=== PATIENT | female | born 1980 | race Caucasian/White ===

== ENCOUNTER → 2018-05-12 11:53 | Outpatient (CLI) | payer BC, SELFPAY ==
--- NOTE | 2018-05-12 11:58 | XR_ITS ---
EXAM: XR lumbar spine min 4V HISTORY: ITS.REASON: LOW BACK PAIN ORDERING PHYSICIAN: Pauline Phillips PATIENT AGE: 37 years COMPARISON: None FINDINGS: Normal alignment. No fracture or dislocation. No lytic or blastic change. No significant degenerative change. The disc spaces are preserved. There is minimal thoracolumbar curvature convex right. Is mild anterolisthesis of L4 on L5 of approximately 5 mm. There may be pars defects at L5. This is somewhat difficult to evaluate due to the obliquity. A nonobstructing stone is present along the lower pole follow-up the right kidney at 3 mm and also at the lower pole the left kidney at 3 mm.. No other significant anomalies are evident IMPRESSION: 1. Mild spondylolisthesis L5 on S1 which may be spondylitic in nature with mild lumbar scoliosis convex right. 2. Otherwise negative lumbar spine. 3. Bilateral nephrolithiasis
--- NOTE | 2018-05-12 11:58 | XR_ITS ---
EXAM: XR thoracic spine 3V HISTORY: ITS.REASON: THORACIC BACK PAIN Comparison: None FINDINGS: Normal alignment. No fracture or dislocation. No lytic or blastic change. There are mild degenerative changes in the upper thoracic spine with mild degenerative disc disease. No malalignment. IMPRESSION: Mild upper thoracic spondylosis, no acute finding
== END ==
PROVIDERS: PCP Nurse Practitioner Family; Visit Provider Nurse Practitioner Family
DX: M54.6 Pain in thoracic spine (principal); M54.5 Low back pain
CPT/HCPCS: 72072; 72110

== ENCOUNTER → 2018-08-18 09:09 | Outpatient (POV) | payer BC, SELFPAY ==
[2018-08-18 09:20] VITALS: BP 138/98; PULSE 71; RESP 18; O2SAT 98
--- NOTE | 2018-08-18 09:50 | HMH.PMCON ---
Assessment and Plan (1) Lumbar facet joint pain Current visit: Yes Status: Acute Category: Medical Code(s): M54.5 - Low back pain (2) Arthropathy of lumbosacral facet joint Current visit: Yes Status: Acute Category: Medical Code(s): M47.817 - Spondylosis without myelopathy or radiculopathy, lumbosacral region (3) Spondylosis Current visit: Yes Status: Acute Category: Medical Code(s): M47.9 - Spondylosis, unspecified - Assessment and plan all Dx Assessment and Plan for all problems:: Given the patient's complaints, I think she would benefit from facet joint injections at L4-L5 and L5-S1 bilaterally. Patient's not on any anticoagulation therapy. The patient understands that this is a diagnostic procedure. We also discussed a radiofrequency ablation if facet joint injections are helpful. The patient has been scheduled and we will follow-up with her after the procedure. Is been instructed to call the office if she has any concerns prior to her next visit. Dr. Tian has reviewed this note and agrees with this plan of care. This note was dictated using voice recognition software and may contain errors or omissions HPI - Data of Consult Consult date: 08/18/18 Requesting Physician: Mague Mahajan APRN Primary Care Provider: Pauline Phillips APRN - Consult Narrative Reason for consult: Low back pain History of present illness: Ms. Giron is a 38 year old female who presents today for complaints of low back pain. She has been seeing Dr. Rivera in [place] has received 2 epidural injections. She is scheduled for a third epidural injection, and then the plan per Dr. Rivera is to do a lumbar fusion. She reports constant pain and pressure when standing, twisting at the waist, lying flat, and sitting. She does have pressure relieved when leaning forward. She has been using the anti-inflammatories and has been exercising. She says neither have relieved the pain. The patient is concerned about having a fusion and would like to consider other options before having surgery. She rates her pain a 6 out of 10 today. The patient has been taking tramadol 50 mg twice daily. This was prescribed by her PCP. She does say that it takes the edge off of the pain but does not relieve it entirely . Patient is interested in moving forward with additional injective therapy. Patient has no radiation of her pain. CC: Mague Mahajan APRN [facility] History I have reviewed the patient's past medical history: Yes Medical History: Reports:: Heart Murmur, Hyperlipidemia, Palpitations Denies:: Cancer, Diabetes Mellitus Type 1, Diabetes Mellitus Type 2, MRSA *Have you ever received a pneumonia vaccine?: No *Have you received a flu vaccine this season?: No Amputation: No - *Social History Smoking Status: Never smoker Alcohol Intake: never *Occupational Status:: other Housing: house *Travel in the last 8 weeks: None - Psychiatric History Expresses thoughts of harming self/others: None Suicide Plan Description: No Plan Family Hx:: Unable to obtain Review of Systems - Review of Systems ROS General: no recent weight change, no fever, no sleep disturbances Respiratory: no cough, no shortness of air, no recurring pulmonary infections Cardiovascular/Peripheral Vascular: No chest pain, No palpitations, no edema, no shortness of breath. Gastrointestinal: no incontinence, normal bowel movements reported Genitourinary: no incontinence Musculoskeletal: Low back pain Psychiatric: normal mood/ affect, [denies depression], [denies anxiety] Neurological: [denies weakness in extremities], [denies balance issues] Meds Home Medications Medication Instructions Recorded Confirmed Type Hydrocodone/Acetaminophen 1 each PO DIRECTED PRN 06/12/17 06/12/17 History [Hydrocodone-Acetamin 10-325 mg] Sertraline HCl [Zoloft 50mg tablet] 50 mg PO DAILY 06/12/17 06/12/17 History predniSONE [Prednisone 10mg Tab 10 mg PO D
--- NOTE | 2018-08-18 09:56 | P.CONS_ITS ---
Assessment and Plan (1) Lumbar facet joint pain Current visit: Yes Status: Acute Category: Medical Code(s): M54.5 - Low back pain (2) Arthropathy of lumbosacral facet joint Current visit: Yes Status: Acute Category: Medical Code(s): M47.817 - Spondylosis without myelopathy or radiculopathy, lumbosacral region (3) Spondylosis Current visit: Yes Status: Acute Category: Medical Code(s): M47.9 - Spondylosis, unspecified - Assessment and plan all Dx Assessment and Plan for all problems:: Given the patient's complaints, I think she would benefit from facet joint injections at L4-L5 and L5-S1 bilaterally. Patient's not on any anticoagulation therapy. The patient understands that this is a diagnostic procedure. We also discussed a radiofrequency ablation if facet joint injections are helpful. The patient has been scheduled and we will follow-up with her after the procedure. Is been instructed to call the office if she has any concerns prior to her next visit. Dr. Tian has reviewed this note and agrees with this plan of care. This note was dictated using voice recognition software and may contain errors or omissions HPI - Data of Consult Consult date: 08/18/18 Requesting Physician: Mague Mahajan APRN Primary Care Provider: Pauline Phillips APRN - Consult Narrative Reason for consult: Low back pain History of present illness: Ms. Giron is a 38 year old female who presents today for complaints of low back pain. She has been seeing Dr. Rivera in [place] has received 2 epidural injections. She is scheduled for a third epidural injection, and then the plan per Dr. Rivera is to do a lumbar fusion. She reports constant pain and pressure when standing, twisting at the waist, lying flat, and sitting. She does have pressure relieved when leaning forward. She has been using the anti- inflammatories and has been exercising. She says neither have relieved the pain. The patient is concerned about having a fusion and would like to consider other options before having surgery. She rates her pain a 6 out of 10 today. The patient has been taking tramadol 50 mg twice daily. This was prescribed by her PCP. She does say that it takes the edge off of the pain but does not relieve it entirely . Patient is interested in moving forward with additional injective therapy. Patient has no radiation of her pain. CC: Mague Mahajan APRN [facility] History I have reviewed the patient's past medical history: Yes Medical History: Reports:: Heart Murmur, Hyperlipidemia, Palpitations Denies:: Cancer, Diabetes Mellitus Type 1, Diabetes Mellitus Type 2, MRSA *Have you ever received a pneumonia vaccine?: No *Have you received a flu vaccine this season?: No Amputation: No - *Social History Smoking Status: Never smoker Alcohol Intake: never *Occupational Status:: other Housing: house *Travel in the last 8 weeks: None - Psychiatric History Expresses thoughts of harming self/others: None Suicide Plan Description: No Plan Family Hx:: Unable to obtain Review of Systems - Review of Systems ROS General: no recent weight change, no fever, no sleep disturbances Respiratory: no cough, no shortness of air, no recurring pulmonary infections Cardiovascular/Peripheral Vascular: No chest pain, No palpitations, no edema, no shortness of breath. Gastrointestinal: no incontinence, normal bowel movements reported Genitourinary: no incontinence Musculoskeletal: Low back pain Psychiatric: normal mood/ affect, [denies depression], [denies anxiety] Neurological:
== END ==
PROVIDERS: PCP Nurse Practitioner Family; Visit Provider Clinical Nurse Specialist Family Health
DX: M47.817 Spondylosis without myelopathy or radiculopathy, lumbosacral region (principal)
CPT/HCPCS: 99202

== ENCOUNTER 2018-08-28 12:12 | Day surgery (SDC) | payer BC, SELFPAY ==
[2018-08-28 12:28] VITALS: BP 116/88; PULSE 84; RESP 18; O2SAT 97; BMI 23.1
--- NOTE | 2018-08-28 12:38 | HMH.PMPROC ---
- Procedure Date: 08/28/18 Time: 12:38 Anesthesiologist:: Jw Tian MD Complications:: None Pre-procedure Diagnosis:: Degenerative disc disease of lumbar spine with lumbar radicular symptoms and lumbar spondylosis and facet arthropathy of lumbar spine Post-procedure Diagnosis:: Same Indications for Procedure:: This patient is a pleasant 38-year-old white female who we have been treating for low back pain with lumbar radicular symptoms. She is previously had epidural steroid injections by Dr. Rivera. She was scheduled for a fusion however she wants to try conservative treatments prior to undergoing a fusion. She does have facet arthritis. We will do bilateral lumbar facet injection/medial branch blocks of L4-5 and L5-S1 today. Procedure Details:: Lumbar medial branch block Informed consent was obtained and the risks and benefits of the procedure was explained to the patient. The back was prepped using ChloraPrep. The skin and subcutaneous tissues were anesthetized using lidocaine. I placed 22-gauge spinal needles into the facet joint/medial branches of L4-L5 and L5-S1 bilaterally. Needle placement was confirmed with dye. After this we injected 3 mL bupivacaine 0.25% and Depo-Medrol 20 mg into each facet joint/medial branch of L4-L5 and L5-S1 bilaterally. We used a total of 80 mg Depo-Medrol for both levels bilaterally. The patient tolerated the procedure well with no complications. Plan and Disposition:: We will follow-up with her in 2 weeks. Will reevaluate symptoms at that time. If she does well we will plan on radiofrequency ablation of the facet joints in the future.
[2018-08-28 12:41] VITALS: BP 148/84; PULSE 99; RESP 18
[2018-08-28 12:42] VITALS: BP 142/78; PULSE 98; RESP 18; O2SAT 99
[2018-08-28 12:51] VITALS: BP 158/88; PULSE 72; RESP 16; O2SAT 96
== END 2018-08-28 12:50 | disposition home or self-care (01) ==
LOC: SC.PAINP 12:13
PROVIDERS: PCP Nurse Practitioner Family; Visit Provider Anesthesiology
DX: M51.16 Intervertebral disc disorders with radiculopathy, lumbar region (principal); M47.896 Other spondylosis, lumbar region; M54.06 Panniculitis affecting regions of neck and back, lumbar region
CPT/HCPCS: 64493; 64494; J1030; Q9966

== ENCOUNTER → 2018-09-21 13:45 | Outpatient (POV) | payer BC, SELFPAY ==
[2018-09-21 13:53] VITALS: BP 147/81; PULSE 100; RESP 18; O2SAT 98; BMI 22.7
--- NOTE | 2018-09-21 14:26 | HMH.PAINSOAP ---
[facility] Pain Management SOAP Note Subjective:: Patient is a pleasant 38-year-old white female who presents today for follow-up after facet injections/medial branch block of L4-L5 and L5-S1 bilaterally. Patient says that she had 80% relief with this. She is being treated for low back pain with lumbar radiculopathy symptoms. Patient has had previous epidural steroid injections by Dr. Rivera that she says were ineffective for her pain. She does rate her pain a 3 out of 10 today. Patient would like to proceed with an RFA. She has continued with a home stretching program, along with anti-inflammatories. She says that her pain is worse when she bends her hips. Review of Systems General: No recent weight changes, no fever, no sleep disturbances Respiratory: No cough, no shortness of air, no recurring pulmonary infections Cardiovascular/peripheral vascular: No chest pain, no palpitations, no edema, no shortness of breath Gastrointestinal: No new onset incontinence, normal bowel movements reported Genitourinary: No new onset incontinence Musculoskeletal: Back pain Psychiatric: Normal mood/affect Neurological: [Denies weakness in extremities], [denies balance issues] Objective:: Physical exam General: Alert and oriented x3, no acute distress, pleasant and cooperative, [on room air] Lungs: Respirations even and unlabored, symmetrical chest expansion Eyes: PERRL Musculoskeletal: Flexion and extension of lumbar spine somewhat guarded secondary to pain, deep tendon reflexes normal, strength in upper and lower extremities [5/5], normal gait noted, positive Kemps test Neurological: Speech clear, house worker general equal, no gross sensory deficit Assessment:: Degenerative disc disease lumbar spine with lumbar radiculopathy, lumbar spondylosis, facet arthropathy of lumbar spine Plan:: The pain she understands that the facet injection is diagnostic. Due to her attempts of conservative treatment, she is requesting to proceed with an RFA as soon as possible. We will schedule the patient for an RFA of L4-L5 and L5-S1 bilaterally. Patient is not on any anticoagulation therapy. She is also continuing a home stretching program with anti-inflammatories. Patient understands that she may require a second facet injection prior to her RFA. We will schedule her for the procedure and follow-up with her afterwards to reassess her symptoms at that time. She is been instructed to call the office if she has any concerns prior to that next appointment. Dr. Tian has reviewed this note and agrees with this plan of care. This note was dictated using voice recognition software and make contain errors or omissions.
--- NOTE | 2018-09-21 14:31 | P.CONS_ITS ---
[facility] Pain Management SOAP Note Subjective:: Patient is a pleasant 38-year-old white female who presents today for follow-up after facet injections/medial branch block of L4-L5 and L5-S1 bilaterally. Patient says that she had 80% relief with this. She is being treated for low back pain with lumbar radiculopathy symptoms. Patient has had previous epidural steroid injections by Dr. Rivera that she says were ineffective for her pain. She does rate her pain a 3 out of 10 today. Patient would like to proceed with an RFA. She has continued with a home stretching program, along with anti- inflammatories. She says that her pain is worse when she bends her hips. Review of Systems General: No recent weight changes, no fever, no sleep disturbances Respiratory: No cough, no shortness of air, no recurring pulmonary infections Cardiovascular/peripheral vascular: No chest pain, no palpitations, no edema, no shortness of breath Gastrointestinal: No new onset incontinence, normal bowel movements reported Genitourinary: No new onset incontinence Musculoskeletal: Back pain Psychiatric: Normal mood/affect Neurological: [Denies weakness in extremities], [denies balance issues] Objective:: Physical exam General: Alert and oriented x3, no acute distress, pleasant and cooperative, [on room air] Lungs: Respirations even and unlabored, symmetrical chest expansion Eyes: PERRL Musculoskeletal: Flexion and extension of lumbar spine somewhat guarded secondary to pain, deep tendon reflexes normal, strength in upper and lower extremities [5/5], normal gait noted, positive Kemps test Neurological: Speech clear, 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 Due to her attempts of conservative treatment, she is requesting to proceed with an RFA as soon as possible. We will schedule the patient for an RFA of L4-L5 and L5-S1 bilaterally. Patient is not on any anticoagulation therapy. She is also continuing a home stretching program with anti-inflammatories. Patient understands that she may require a second facet injection prior to her RFA. We will schedule her for the procedure and follow-up with her afterwards to reassess her symptoms at that time. She is been instructed to call the office if she has any concerns prior to that next appointment. Dr. Tian has reviewed this note and agrees with this plan of care. This note was dictated using voice recognition software and make contain errors or omissions.
== END ==
PROVIDERS: PCP Nurse Practitioner Family; Visit Provider Clinical Nurse Specialist Family Health
DX: M51.16 Intervertebral disc disorders with radiculopathy, lumbar region (principal); M47.896 Other spondylosis, lumbar region; M54.06 Panniculitis affecting regions of neck and back, lumbar region
CPT/HCPCS: 99212

== ENCOUNTER → 2019-05-31 12:58 | Outpatient (CLI) | payer BC, SELFPAY | PROVIDERS: PCP Nurse Practitioner Family; Visit Provider Nurse Practitioner Family | DX: J45.41 Moderate persistent asthma with (acute) exacerbation (principal) | CPT/HCPCS: 94060; 94640 ==

== ENCOUNTER → 2019-06-28 14:17 | Outpatient (POV) | payer BC, SELFPAY ==
--- NOTE | 2019-06-28 16:11 | HMH.VVPMSO ---
[facility] Virtual Visit SOAP Consent for virtual visit:: With the recent concerns about the COVID-19, we are trying to minimize exposure to you by shifting to telehealth appointments whenever possible. It restricts me from seeing you in person, but the trade off is protecting you during this pandemic. Can you see and hear me okay, and do you consent to this option? If not, I would be happy to see if we can reschedule your appointment in the future, when feasible. Has patient consented to this virtual visit?: Yes Subjective:: She is a very pleasant 39-year-old white female who presents today for follow-up. Patient had an RFA done back in November of last year. Patient is done extremely well. She has had 8 months of pain relief. She gets 90% relief with her RFA's. She would like to move forward with repeating the RFA. Patient beginning to have her pain returned. She rates it a 4 out of 10 today. She is tried and failed medications, anti-inflammatories, physical therapy. Patient also had 2 sets of successful diagnostic medial branch blocks. ROS General: no recent weight change, no fever, no sleep disturbances Respiratory: no cough, no shortness of air, no recurring pulmonary infections Cardiovascular/Peripheral Vascular: No chest pain, No palpitations, no edema, no shortness of breath. Gastrointestinal: no new onset incontinence, normal bowel movements reported Genitourinary: no new onset incontinence Musculoskeletal: Back pain Psychiatric: normal mood/ affect, Neurological: [denies new onset weakness in extremities], [denies new onset balance issues] Objective:: Physical exam: Constitutional: Healthy appearing, well-developed, alert, in no acute distress Psychiatric: Judgment and insight intact, Alert and oriented x4 Mood and affect: Mood normal, affect appropriate Head and face: Inspection: Normocephalic atraumatic, extraocular movement intact Respiratory: Breathing nonlabored, nondyspneic Cardiovascular: No cyanosis, clubbing, or edema observed Skin: Head and neck: Skin with no lesions or rash observed Gait: Able to walk without assistive device: Able to heel and toe walk Neurologic: Sensation grossly intact per patient Musculoskeletal: Difficulty with twisting motion of lumbar spine, range of motion decreased lumbar spine Assessment:: Spondylosis, facet joint arthropathy. Plan:: We will set her up for an L4-L5 L5-S1 facet joint radiofrequency ablation bilaterally. She will have one side done and then 2 weeks later have the other side done. She is not on any anticoagulation therapy. Overall patient doing well. I will follow-up with her after this reassess her symptoms at that time she was instructed to call the office if she has any issues prior to her next appointment. Dr. iTan has reviewed this note and agrees with this plan of care. This note was dictated using voice recognition software and may contain errors or omissions we specifically discussed risk factors for Covid-19 including age, heart or lung disease, diabetes, immunosuppression and travel. We also discussed that NSAIDs may worsen Covid-19 infection symptoms and that they should not be used to treat Covid-19 symptoms. Patient was also informed that corticosteroids in any form oral or injectable will decrease immune response and may increase risk of Covid-[address] Tian has reviewed this patient's chart and this note and agrees with plan of care. Patient has been instructed to call the office if they have any issues prior to the next appointment. Time In:: 14:20 Time Out:: 14:30 [facility] History I have reviewed the patient's past medical history: Yes Medical History: Reports:: Asthma, Heart Murmur, Hyperlipidemia, Palpitations Denies:: Cancer, Diabetes Mellitus Type 1, Diabetes Mellitus Type 2, MRSA, Seizures *Have you ever received a pneumonia vaccine?: No *Have you received a flu vaccine this season?: No Other Medical History: Reports:
== END ==
PROVIDERS: Visit Provider Clinical Nurse Specialist Family Health
DX: M47.816 Spondylosis without myelopathy or radiculopathy, lumbar region (principal); M54.06 Panniculitis affecting regions of neck and back, lumbar region
CPT/HCPCS: 99212

== ENCOUNTER 2019-07-30 13:30 | Day surgery (SDC) | payer BC, SELFPAY ==
[2019-07-30 13:46] VITALS: BP 133/74; PULSE 90; RESP 18; TEMP 37.1; O2SAT 97; BMI 23.5
--- NOTE | 2019-07-30 14:05 | HMH.PMPROC ---
- Procedure Date: 07/30/19 Time: 14:05 Anesthesiologist:: Jw Tian MD Complications:: None Pre-procedure Diagnosis:: Degenerative disc disease of lumbar spine with lumbar spondylosis and facet arthropathy of lumbar spine Post-procedure Diagnosis:: Same Indications for Procedure:: This patient is a pleasant 39-year-old white female who we have been treating for low back pain with lumbar spondylosis and facet arthropathy of lumbar spine. She is done well with previous medial branch blocks with 80 to 90% relief in her pain symptoms. She does have facet mediated pain over L4-5 and L5-S1. We will plan on right sided lumbar facet radiofrequency ablation of L4-5 and L5-S1 today. We will plan on doing the left side in 2 weeks. Procedure Details:: Lumbar RFA informed consent was obtained and the risk and benefits of the procedure was explained to the patient. Patient was placed prone on the procedure table. The patient was prepped and draped in sterile fashion. C-arm fluoroscopy was used to view the lumbar spine. The skin and subcutaneous tissues were anesthetized using lidocaine. I placed 20-gauge RF needles into the facet joints of L4-5 and L5-S1 levels on the right side. We underwent sensory stimulation. There is good sensory stimulation at 0.8 V. We underwent motor stimulation. There is no motor stimulation at 2 V. We then anesthetized these levels with lidocaine and Depo-Medrol. I used a total of 40 mg Depo-Medrol for both levels. I then burned both levels of 4 5 and L5-S1 for 4 minutes at 80 ?C. Patient tolerated the procedure well with no complication. Plan and Disposition:: We will follow-up with her in 2 weeks. Will reevaluate her symptoms. We will plan on lumbar radiofrequency ablation to the facet joints of L4-5 and L5-S1 on the left side at that time.
[2019-07-30 14:06] VITALS: BP 132/85; PULSE 85; RESP 18; TEMP 36.6; O2SAT 99
[2019-07-30 14:09] VITALS: BP 142/78; PULSE 85; RESP 18; O2SAT 99
[2019-07-30 14:20] VITALS: BP 117/74; PULSE 77; RESP 18; O2SAT 97
== END 2019-07-30 14:20 | disposition home or self-care (01) ==
LOC: SC.PAINP 13:31
PROVIDERS: PCP Nurse Practitioner Family; Visit Provider Anesthesiology
DX: M51.36 Other intervertebral disc degeneration, lumbar region (principal); M12.88 Other specific arthropathies, not elsewhere classified, other specified site; M47.816 Spondylosis without myelopathy or radiculopathy, lumbar region; J44.9 Chronic obstructive pulmonary disease, unspecified; J45.909 Unspecified asthma, uncomplicated; Z87.39 Personal history of other diseases of the musculoskeletal system and connective tissue
CPT/HCPCS: 64635; 64636; J1040

== ENCOUNTER 2019-08-13 09:18 | Day surgery (SDC) | payer BC, SELFPAY ==
[2019-08-13 09:30] VITALS: BP 129/69; PULSE 79; RESP 18; O2SAT 98; BMI 23.5
[2019-08-13 09:54] VITALS: BP 130/64; PULSE 84; RESP 18; TEMP 36.6; O2SAT 99
[2019-08-13 09:59] VITALS: BP 135/65; PULSE 85; RESP 18; O2SAT 99
--- NOTE | 2019-08-13 10:00 | HMH.PMPROC ---
- Procedure Date: 08/13/19 Time: 10:00 Anesthesiologist:: Jw Tian MD Complications:: None Pre-procedure Diagnosis:: Degenerative disc disease of lumbar spine with lumbar spondylosis and facet arthropathy of lumbar spine Post-procedure Diagnosis:: Same Indications for Procedure:: This patient is a pleasant 39-year-old white female who we have been treating for low back pain with lumbar spondylosis and facet arthropathy of lumbar spine. She has had successful medial branch blocks in the past. She is also status post radiofrequency ablation to the facet joints of L4-5 and L5-S1 on the right side. She is doing very well from this. She presents for RF ablation to the facet joint/medial branches of L4-5 and L5-S1 on the left side today. Procedure Details:: Lumbar RFA informed consent was obtained and the risk and benefits of the procedure was explained to the patient. Patient was placed prone on the procedure table. The patient was prepped and draped in sterile fashion. C-arm fluoroscopy was used to view the lumbar spine. The skin and subcutaneous tissues were anesthetized using lidocaine. I placed 20-gauge RF needles into the facet joints of L4-L5 and L5-S1 levels on the left side. We underwent sensory stimulation. There is good sensory stimulation at 0.8 V. We underwent motor stimulation. There is no motor stimulation at 2 V. We then anesthetized these levels with lidocaine and Depo-Medrol. I used a total of 40 mg Depo-Medrol for both levels. I then burned both levels of L4-L5 and L5-S1 facet joint/medial branches on the left side for 4 minutes at 80 ?C. Patient tolerated the procedure well with no complication. Plan and Disposition:: We will follow-up with her and 2 weeks. Will reevaluate her symptoms at that time.
[2019-08-13 10:18] VITALS: BP 138/87; PULSE 76; RESP 20; O2SAT 98
== END 2019-08-13 10:17 | disposition home or self-care (01) ==
LOC: SC.PAINP 09:22
PROVIDERS: PCP Nurse Practitioner Family; Visit Provider Anesthesiology
DX: M51.36 Other intervertebral disc degeneration, lumbar region (principal); M47.816 Spondylosis without myelopathy or radiculopathy, lumbar region; M12.88 Other specific arthropathies, not elsewhere classified, other specified site
CPT/HCPCS: 64635; 64636; J1040

== ENCOUNTER → 2019-08-23 13:45 | Outpatient (POV) | payer BC, SELFPAY ==
[2019-08-23 14:10] VITALS: BP 126/70; PULSE 78; RESP 18; TEMP 36.7; O2SAT 98; BMI 24.3
[2019-08-23 14:34] VITALS: BP 126/70; PULSE 78; RESP 18; O2SAT 98; BMI 24.3
--- NOTE | 2019-08-23 14:41 | HMH.PAINSOAP ---
[facility] Pain Management SOAP Note Subjective:: Patient is a pleasant 39-year-old white female who presents today for follow-up after her RF ablation of L4-L5 L5-S1 bilaterally. Patient overall doing well having no pain on the right side however she was recently cleaning her laundry room and lifting heavy things. She is now experience extreme left SI joint pain. She has a left SI joint compression test positive left George's test positive in the left Jessica test positive. Patient and I discussed left SI joint injection. I do believe that would benefit her. She rates her pain today an 8 out of 10. She is having difficulty walking. She is sitting with notable discomfort. ROS General: no recent weight change, no fever, no sleep disturbances Respiratory: no cough, no shortness of air, no recurring pulmonary infections Cardiovascular/Peripheral Vascular: No chest pain, No palpitations, no edema, no shortness of breath. Gastrointestinal: no new onset incontinence, normal bowel movements reported Genitourinary: no new onset incontinence Musculoskeletal: SI joint pain Psychiatric: normal mood/ affect Neurological: [denies new onset weakness in extremities], [denies new onset balance issues] Objective:: Physical Exam General: Alert and oriented x3, no acute distress, pleasant and cooperative, [on room air] Lungs: Resps E/U, Symmetrical chest expansion, Eyes: PERRL Musculoskeletal: Flexion and extension of lumbar spine somewhat guarded secondary to pain, deep tendon reflexes normal, strength in upper and lower extremities [5/5], antalgic gait noted Neurological: speech clear, pesticide use medical coordinator equal, no gross sensory deficits Assessment:: Sacroiliitis Plan:: We will plan a left SI joint injection. Given the patient's symptomology I do believe it would be beneficial. She has been instructed to call the office if she has any issues prior to her next appointment. Dr. Tian has reviewed this note and agrees with this plan of care. This note was dictated using voice recognition software and may contain errors or omissions [facility] History I have reviewed the patient's past medical history: Yes Medical History: Reports:: Asthma, Heart Murmur, Hyperlipidemia, Palpitations Denies:: Cancer, Diabetes Mellitus Type 1, Diabetes Mellitus Type 2, MRSA, Seizures *Have you ever received a pneumonia vaccine?: Yes *Have you received a flu vaccine this season?: Yes Other Medical History: Reports: Other (thyroid nodules-workup neg. ) Other Surgeries: Yes: No Previous Surgery, Other Amputation: No Fractures: No - *Social History Smoking Status: Never smoker Alcohol Intake: current Alcohol Intake Frequency:: holidays/special occasions only *Occupational Status:: other Housing: house Household Members: other *Travel in the last 8 weeks: None Family Hx:: Non-contributory, Cancer (Father-Renal cell carcinoma)
== END ==
PROVIDERS: PCP Nurse Practitioner Family; Visit Provider Clinical Nurse Specialist Family Health
DX: M46.1 Sacroiliitis, not elsewhere classified (principal)
CPT/HCPCS: 99212

== ENCOUNTER → 2020-09-27 12:53 | Outpatient (CLI) | payer OTHER, SELFPAY ==
--- NOTE | 2020-09-27 12:55 | US_ITS ---
PROCEDURE: US THYROID CLINICAL INDICATION: THYROID NODULE COMPARISON: No exams were available for comparison FINDINGS: Right lobe: 4 x 1 x 1.2 cm Left lobe: 3.4 x 1.1 x 0.9 cm Isthmus: 0.2 Additional findings: Bilateral thyroid nodules are noted. The largest in the right lobe of thyroid gland measures 1.1 x 0.8 centimeters, demonstrates hypoechogenicity and well-defined margins. Vascularity is noted within the lesion. The 2nd largest nodule in the left lobe measures 0.7 x 0.7 centimeters, demonstrates well-defined margins and vascularity. IMPRESSION: Bilateral thyroid nodules measuring up to 1.1 centimeters. Close follow-up is recommended. Dictated by: Ivis Shaw 09/29/2020 14:12 Ivis Shaw in [place] 09/29/2020 14:12
== END ==
PROVIDERS: PCP Nurse Practitioner Family; Visit Provider Nurse Practitioner Family
DX: E04.1 Nontoxic single thyroid nodule (principal)
CPT/HCPCS: 76536

== ENCOUNTER → 2020-11-01 16:26 | Outpatient (CLI) | payer OTHER, SELFPAY | PROVIDERS: PCP Family Medicine; Visit Provider Family Medicine | DX: Z20.822 Contact with and (suspected) exposure to COVID-19 (principal) | CPT/HCPCS: U0003 ==

== ENCOUNTER → 2021-01-15 15:07 | Outpatient (CLI) | payer OTHER, SELFPAY | PROVIDERS: PCP Nurse Practitioner Family; Visit Provider Nurse Practitioner | DX: Z20.822 Contact with and (suspected) exposure to COVID-19 (principal) | CPT/HCPCS: C9803; U0003; U0005 ==

== ENCOUNTER → 2021-01-18 15:12 | Outpatient (CLI) | payer OTHER, SELFPAY | PROVIDERS: PCP Nurse Practitioner Family; Visit Provider Nurse Practitioner | DX: Z20.822 Contact with and (suspected) exposure to COVID-19 (principal) | CPT/HCPCS: C9803; U0003; U0005 ==

== ENCOUNTER 2021-02-08 11:29 | Emergency (ER) | payer OTHER, SELFPAY ==
[2021-02-08 12:10] VITALS: BP 126/88; PULSE 91; RESP 19; TEMP 37; O2SAT 98; BMI 25.0
[2021-02-08 12:41] LABS: UTC Strep Screen (Rapid) Negative (Negative)
--- NOTE | 2021-02-08 12:44 | HMH.EDUTC ---
[facility] [place] [facility] Disposition Clinical Impression: URI (upper respiratory infection) Disposition: Home, Self-Care Condition on Discharge: Good Instructions: DI for Cough -- Adult, DI for Sinusitis, Sore Throat Additional Instructions: ? Start antibiotic today. Be sure to complete entire prescription even if feeling better ? Monitor temp. Tylenol every 4 hours as needed and / or ibuprofen every 6 hours as needed ( As long as your primary care physician has told you that it ok to take both. For fever/aches/pains ER if no less than 101 despite Tylenol or Motrin ? Humidifier/vaporizer or hot steamy shower ? Inhaler every 4-6 hours as needed like we discussed. If unsure how to use it, ask pharmacist to demonstrate how. Should help open airways and improve cough, wheezing, and shortness of breath *Tessalon Perles will not cause drowsiness but use at bedtime to help stop cough so that you may get some rest. *Start steroid today. Helps with inflammation therefore, cough and wheezing. Follow directions on the package. Reviewed side effects. Patient reports taking them before. Follow up IMMEDIATELY for new or worsening of symptoms OR no noticeable improvement over the next 48-72 hours. 911 immediately for any life threatening symptoms such as chest pain or difficulty breathing Prescriptions: Benzonatate [Benzonatate 100mg cap] 100 mg PO Q8HP PRN #15 cap PRN Reason: Cough Transmission Status: Pending to [facility] methylPREDNISolone [Medrol 4mg tab] 4 mg PO DIRECTED #21 tab Transmission Status: Pending to [facility] Azithromycin [Z-Abdirashid 250mg Tab] 250 mg PO DIRECTED #6 tab Transmission Status: Pending to [facility] Referrals: Pauline Phillips APRN [Primary Care Provider] - As needed Forms: Work/School Release Time of Disposition: 13:11 Medical Decision Making - Robert Inquiry Pt receiving controlled substance: No Robert was queried for this patient: No Vital Signs: 02/08/21 12:10 Temperature 98.6 F Temperature Source Oral Pulse Rate [Right Brachial] 91 H Respiratory Rate 19 Blood Pressure [Right Arm] 126/88 Blood Pressure Mean [Right Arm] 100 Blood Pressure Source [Right Arm] Automatic Cuff Blood Pressure Position [Right Arm] Sitting 02 Sat by Pulse Oximetry 98 Oxygen Delivery Method Room Air - Lab Data Lab results reviewed: Yes: I reviewed the patient's lab results. Lab Results 02/08/21 12:30: Strep Scn Rapid Clinic Negative Orders (Tests/Meds): ORDERS Category Date Time Status Covid-19 Nasal PCR ([facility]) Routine Lab 02/08/21 12:22 Received Strep Screen Confirmation Stat Micro 02/08/21 12:30 Received Medical Decision Narrative: Patient states that she has taken azithromyicn and medrol in the past without any complications or reactions with medications [facility] [place] [facility] HPI - General Stated complaint: sore throat,fever, body aches Time Seen by Provider: 02/08/21 12:44 Mode of Arrival: Ambulatory Source of Information: Patient Limitations: No Limitations Description of Symptoms (Recalled from Triage Doc. by RN): PATIENT C/O SORE THROAT, BODY ACHES, FEVER, RUNNY NOSE AND COUGH X 3 DAYS HEENT Symptoms (Recalled from RN notes): Yes Resp Symptoms (Recalled from RN notes): Yes Skin Symptoms (Recalled from RN notes): No MS Symptoms (Recalled from RN notes): No Functional Status (Recalled from RN notes): WNL - History of Present Illness Provider Complaint: Patient state that she hasnt been feeling well for about 3 days States that she was recently around her mother who tested positive for strep throat States that she has been having sore throat, cough, nasal congestion and drainage for about 3 days states that she has history of asthma and has had bronchitis in the past and feels like she may have it now States that today she was still feeling bad so she came in to get checked - Related Data Home Medications Medication Instructions Recorded Confirmed norethindrone acetate 1
[2021-02-08 13:23] VITALS: BP 126/88; PULSE 91; RESP 19; TEMP 37; O2SAT 98
== END 2021-02-08 13:30 | disposition home or self-care (01) ==
PROVIDERS: Emergency Provider Nurse Practitioner; PCP Nurse Practitioner Family
DX: J06.9 Acute upper respiratory infection, unspecified (principal); J02.9 Acute pharyngitis, unspecified; Z20.822 Contact with and (suspected) exposure to COVID-19
CPT/HCPCS: 87880; 99203; C9803; G0463; U0003; U0005

== ENCOUNTER → 2021-08-14 11:25 | Outpatient (POV) | payer OTHER, SELFPAY ==
[2021-08-14 11:27] VITALS: BP 123/87; PULSE 108; RESP 18; TEMP 36.9; O2SAT 95; BMI 26.6
--- NOTE | 2021-08-14 11:39 | HMH.PMCON ---
Assessment and Plan (1) Neck pain Status: Acute Category: Medical Code(s): M54.2 - Cervicalgia (2) Lumbar spondylosis Status: Acute Category: Medical Code(s): M47.816 - Spondylosis without myelopathy or radiculopathy, lumbar region (3) Radiculopathy affecting upper extremity Status: Acute Category: Medical Code(s): M54.10 - Radiculopathy, site unspecified (4) Lumbar facet joint pain Status: Acute Category: Medical Code(s): M54.5 - Low back pain - Assessment and plan all Dx Assessment and Plan for all problems:: Patient has been having worsening low back pain that radiates mainly to the left side. She cannot tolerate any prolonged activity such as sitting, standing, and walking. SI exam is positive. We will schedule the patient for a left SI injection and left greater trochanteric bursa injection. Risks and benefits of the procedure have been explained to the patient. Patient would like to proceed with the procedure. If the patient does not get significant relief from this, we will schedule the patient for a repeat lumbar RFA bilaterally at L4-L5 and L5-S1. Since the patient has been having new onset neck pain that radiates mainly to the left arm causing numbness and paresthesia, we will order a cervical MRI. I will also order rheumatological labs for evaluation of rheumatoid arthritis. This includes BATSHEVA, ESR, CRP, rheumatoid factor, anti-CCP. In the meantime, I will start the patient on meloxicam 15 mg daily and tizanidine 4 mg 3 times a day. Patient has been instructed to contact the clinic with any concerns before the next appointment. Dr. Tian has reviewed this note and agrees with this plan of care. This note was dictated using voice recognition software and make contain errors or omissions. HPI - Data of Consult Patient: new to practice Consult date: 08/14/21 Requesting Physician: BRYANT Hutchins - Consult Narrative Reason for consult: neck pain, LBP, hip pain History of present illness: Ms. Giron is a 41 year old female presents today to reestablish care. We last saw this patient on 08/23/19. Patient presents today with worsening LBP that radiates to BLE, L > R. In the past, we have tried two lumbar RFA bilat. at L4-L5, L5-S1. She says that the first RFA significantly helped her but she did not see any difference with the second lumbar RFA that was done in August 2019. She previously had LESI that was done by Dr. Rivera in [place]. He had discussed with her that she may need lumbar fusion but she did not want to move forward with this procedure. Because of her back pain, she cannot tolerate any prolonged activities such as sitting, standing, and walking. Denies any loss of bowel and bladder functions. She has trouble getting up from a sitting position. When Mague saw her in 2019, she had suggested a left SI injection but the patient canceled that procedure. Additionally, she has also been hurting around her neck that radiates down to her left arm for the past week. It is accompanied by numbness and paresthesia. She does note some weakness from time to time. Lastly, patient says that arthritis runs in her family. She has been noticing lately that she hurts around her major joints in the morning. She wants to know if there are any lab tests that we can do to evaluate it. For pain, she takes OTC medications such as ibuprofen. Rates pain today as 510. Robert [id number]. CC: BRYANT Hutchins [facility] History I have reviewed the patient's past medical history: Yes Medical History: Reports:: Asthma, Heart Murmur, Hyperlipidemia, Palpitations Denies:: Cancer, Diabetes Mellitus Type 1, Diabetes Mellitus Type 2, MRSA, Seizures *Have you ever received a pneumonia vaccine?: No *Have you received a flu vaccine this season?: Yes Other Medical History: Reports: Other (thyroid nodules-workup neg. ) Other Surgeries: Yes: No Previous Surgery, Other Amputation: No Fractures: No - *Social History Smoking St
== END ==
PROVIDERS: Visit Provider Student in an Organized Health Care Education/Training Program
DX: M54.2 Cervicalgia (principal); M47.816 Spondylosis without myelopathy or radiculopathy, lumbar region; M54.50 Low back pain, unspecified; M54.10 Radiculopathy, site unspecified
CPT/HCPCS: 99202; G0463

== ENCOUNTER → 2021-08-17 08:49 | Outpatient (CLI) | payer OTHER, SELFPAY ==
--- NOTE | 2021-08-17 08:54 | MR_ITS ---
FINAL REPORT CLINICAL HISTORY: NECK PAIN. LEFT SIDED CLAVICLE AND SHOULDER PAIN. NUMBNESS AND TINGLING IN FINGERS OF LEFT HAND. FINDINGS: Multiplanar MR imaging of the cervical spine was performed without contrast. On the sagittal T2-weighted images, disc degeneration is seen throughout. There is no evidence of fracture. The vertebral alignment is normal. The cervical spinal cord has an unremarkable appearance without evidence of mass, edema or syrinx. No significant canal stenosis is identified. The cervicomedullary junction is normal. C2-3: There is no significant canal stenosis or neural foraminal narrowing. C3-4: There is a small central disc protrusion. There is no significant canal stenosis or neural foraminal narrowing. C4-5: There are uncovertebral osteophytes and a small central disc protrusion. There is no significant canal stenosis or neural foraminal narrowing. C5-6: There is a disc osteophyte complex. There are right foraminal and small central disc protrusions. There is severe right and moderate left neural foraminal narrowing. C6-7: An annular bulge is present. There is no significant canal stenosis or neural foraminal narrowing. C7-T1: There is no significant canal stenosis or neural foraminal narrowing. IMPRESSION: Disc protrusions at C3-C4, C4-C5, and C5-C6 without significant central canal stenosis. Multilevel degenerative disc disease with neural foraminal narrowing at C5-C6. Reviewed, Interpreted and Dictated by Joe Thompson III, MD Transcribed by [place] Authenticated and [facility]
== END ==
PROVIDERS: PCP Nurse Practitioner Family; Visit Provider Student in an Organized Health Care Education/Training Program
DX: M54.2 Cervicalgia (principal); Z79.891 Long term (current) use of opiate analgesic
CPT/HCPCS: 72141; 76376

== ENCOUNTER 2021-08-21 14:41 | Day surgery (SDC) | payer OTHER, SELFPAY ==
[2021-08-21 14:51] VITALS: BP 152/88; PULSE 106; RESP 18; TEMP 36.8; O2SAT 93; BMI 26.6
[2021-08-21 14:54] VITALS: BP 168/88; PULSE 110; RESP 20
--- NOTE | 2021-08-21 14:58 | P.PCN_ITS ---
- Procedure Date: 08/21/21 Time: 14:58 Anesthesiologist:: Maxwell Bang CRNA Complications:: None Pre-procedure Diagnosis:: Left sacroiliitis. Left trochanteric bursitis. Post-procedure Diagnosis:: Same Indications for Procedure:: Very pleasant 41-year-old female that comes our clinic today for left SI joint injection as well as left trochanteric bursa injection. Patient has had what she thinks is SI joints in the past. However never had trochanteric bursa injection. She has extreme point tenderness over both sites. Rates her pain 7/10. Patient describes her posterior hip pain on the left side as dull, aching. Also sharp stabbing pain over the left trochanteric bursa. Especially upon palpation. Procedure Details:: Procedure: Left sacroiliac injection under fluoroscopy Informed consent was obtained and the risk and benefits of the procedure were explained to the patient.~ The patient was taken to the procedure room and noninvasive monitors were placed including noninvasive blood pressure cuff and pulse oximeter.~ The patient was placed prone on the procedure table.~ The~ left hip was cleansed using Betadine as a cleansing solution.~ C-arm fluorosocpy was used to view the left SI joint.~ The skin and subcutaneous tissues were anesthetized using Lidocaine 1.5% and a 25-gauge needle.~ After this, a 22-gauge spinal needle was inserted under fluoroscopic guidance into the inferior aspect of the left SI joint.~ Omnipaque dye was injected and a good spread was seen throughout the joint.~ After this, approximately 5 mL of bupivacaine 0.25% and Depo-Medrol 40 mg was incrementally injected into the sacroiliac joint.~ The patient tolerated the procedure well with no complications.~ The patient was observed in the Pain Clinic for a period of 30-45 minutes, then discharged home neurologically intact.~ Procedure:Left trochanteric bursa injection under fluoroscopy We then moved to the left trochanteric bursa.~ C-arm fluoroscopy was used to view the left greater trochanter.~ The skin and subcutaneous tissues overlying the left greater trochanter were anesthetized using lidocaine, 1.5% and a 25- gauge needle.~ After this, a 22-gauge spinal needle was inserted and advanced until it contacted the left greater trochanter.~ Dye was injected and good spread was seen throughout the left trochanteric bursa. After this, approximately 5 mL of bupivacaine, 0.25% and Depo-Medrol, 40 mg was incrementally injected into the left trochanteric bursa.~ The patient tolerated the procedure well with no complications. Plan and Disposition:: Patient was discharged without incident. Patient reports no pain upon discharge.
[2021-08-21 14:59] VITALS: BP 142/78; PULSE 87; RESP 18; O2SAT 96
== END 2021-08-21 15:00 | disposition home or self-care (01) ==
LOC: SC.PAINP 14:42
PROVIDERS: PCP Nurse Practitioner Family; Visit Provider Nurse Anesthetist, Certified Registered
DX: M46.1 Sacroiliitis, not elsewhere classified (principal); M70.62 Trochanteric bursitis, left hip; M54.2 Cervicalgia; M47.26 Other spondylosis with radiculopathy, lumbar region
CPT/HCPCS: 27096; 76000; G0260; J1040

== ENCOUNTER → 2021-09-06 13:30 | Outpatient (POV) | payer OTHER, SELFPAY ==
[2021-09-06 13:55] VITALS: BP 164/94; PULSE 101; RESP 18; TEMP 36.8; O2SAT 98; BMI 26.6
--- NOTE | 2021-09-06 21:21 | HMH.PAINSOAP ---
[facility] Pain Management SOAP Note Subjective:: Patient is a pleasant 41-year-old female who presents today for follow-up for a left SI and left greater trochanteric bursa injection on August 21, 2021. Patient is currently being treated for chronic neck pain, degenerative disc disease of the lumbar spine, lumbar facet arthropathy, lumbar spondylosis, cervical radiculopathy, sacroiliitis, generalized joint pain. After her injection, patient states that she has some relief of 50 to 60% and rates her pain 7 out of 10. She still having some significant pain in other areas however, her bilateral hip pain has gotten some relief. Today, her main complaint is radicular pain bilateral upper and lower extremities. In the past, she did have a lumbar RFA bilaterally at L4-L5 and L5-S1. She had significant relief after the first round of lumbar RFA but did not get as much relief after the second time. In the past, she was tried on gabapentin and did not get much relief from this medication. I started this patient on meloxicam 15 mg daily and tizanidine 4 mg 3 times a day. She states that the meloxicam is helping some of her pain but the tizanidine is not helping other than making her sleepy. When I last saw this patient, I also ordered a cervical MRI because she was having radicular pains to her bilateral upper extremities. Cervical MRI shows disc protrusions at C3-C4, C4-C5, and C5-C6 without significant central canal stenosis. There is multilevel degenerative disc disease. At C5-C6, there are right foraminal and small central disc protrusion. There is severe right and moderate left neural foraminal narrowing at this level. Review of Systems: General: No recent weight changes, no fever, no sleep disturbances Respiratory: No cough, no shortness of air, no recurring pulmonary infections Cardiovascular/peripheral vascular: No chest pain, no palpitations, no edema, no shortness of breath Gastrointestinal: No new onset incontinence, normal bowel movements reported Genitourinary: No new onset incontinence Musculoskeletal: Neck pain, low back pain, hip pain Psychiatric: [Normal mood/affect] Neurological: [Denies weakness in extremities], [denies balance issues] Objective:: Physical Exam: General: Alert and oriented x3, no acute distress, pleasant and cooperative Lungs: Respirations even and unlabored, symmetrical chest expansion Eyes: PERRL Musculoskeletal: Flexion and extension of cervical and lumbar [spine] somewhat guarded secondary to pain, [antalgic gait noted] Neurological: Speech clear, no gross sensory deficit Assessment:: Degenerative disc disease of the cervical and lumbar spine with cervical and lumbar radiculopathy symptoms, sacroiliitis, generalized joint pain Plan:: Patient continues to have significant pains in multiple areas of her back and hips. She had some relief after the last SI and left greater trochanteric bursa injections. Today, she is mainly concerned about the radicular pains to her bilateral upper and lower extremities. She was tried on gabapentin before that provided minimal relief. We will start this patient on pregabalin 75 mg twice a day #30 tabs. We would like to see this patient back in 3 weeks to reevaluate chronic pain syndrome. In regards to her neck pain, I have discussed with the patient that she could benefit from diagnostic medial branch block at C5-C6. She is not interested in any injective therapy at this time. I am also ordering rheumatological labs for evaluation for rheumatoid arthritis. This includes BATSHEVA, ESR, CRP, rheumatoid factor, and anti-CCP. I will continue the patient's meloxicam 15 mg daily and provide the patient with a 1 month refill. Patient has been instructed to contact the clinic with any concerns before the next appointment. Dr. Tian has reviewed this note and agrees with this plan of care. This note was dictated using voice recognition software and make contain errors or omissions. [facility] History
== END ==
PROVIDERS: Visit Provider Student in an Organized Health Care Education/Training Program
DX: M50.122 Cervical disc disorder at C5-C6 level with radiculopathy (principal); M51.16 Intervertebral disc disorders with radiculopathy, lumbar region; M46.1 Sacroiliitis, not elsewhere classified
CPT/HCPCS: 99212; G0463

== ENCOUNTER → 2021-09-21 16:07 | Outpatient (CLI) | payer OTHER, SELFPAY ==
[2021-09-21 17:18] LABS: Erythrocyte Sedimentation Rate 20 mm/hr (0-20)
[2021-09-21 17:36] LABS: C-Reactive Protein 16.1 mg/L (0-4)
[2021-09-23 09:13] LABS: RA Latex Turbid. <10.0 IU/mL (<14.0)
[2021-09-25 10:28] LABS: Antinuclear Antibodies, IFA Negative (.)
[2021-09-26 00:08] LABS: Anti-Cyclic Citrullinated Pept 6 units (0-19)
== END ==
PROVIDERS: PCP Nurse Practitioner Family; Visit Provider Student in an Organized Health Care Education/Training Program
DX: M54.50 Low back pain, unspecified (principal); M53.3 Sacrococcygeal disorders, not elsewhere classified
CPT/HCPCS: 36415; 85651; 86038; 86140; 86200; 86431

== ENCOUNTER → 2021-09-24 11:29 | Outpatient (POV) | payer OTHER, SELFPAY ==
[2021-09-24 12:27] VITALS: BP 130/70; PULSE 74; RESP 20; TEMP 36.7; O2SAT 97; BMI 26.6
--- NOTE | 2021-09-24 15:22 | HMH.PAINSOAP ---
[facility] Pain Management SOAP Note Subjective:: Patient is a pleasant 41-year-old female who presents today for follow-up. Patient is currently being treated for degenerative disc disease of the cervical and lumbar spine with cervical and lumbar radiculopathy symptoms, sacroiliitis, generalized joint pain. We recently did a left SI and left greater trochanteric bursa injections that provided about 50 to 60% relief. She states that she is still hurting around the left greater trochanteric bursa. This is worse since the injection. When we last saw this patient, she was also complaining of radicular pains to bilateral upper and lower extremities. I started her on pregabalin 75 mg twice a day. Patient states that this is helping some of her pain but she feels like the dose is not enough. She was also complaining of multiple areas of joint pains. I did order rheumatology labs such as ESR, CRP, and rheumatoid factor. Her ESR was 20, CRP 16, and rheumatoid factor less than 10. She also has facet arthropathy at C5-C6 and I have discussed with her that she could benefit from diagnostic medial branch block at this level. She is not interested in injective therapy at this time. For pain, she was prescribed meloxicam 15 mg daily. She is wanting refills on this medication. Review of Systems: General: No recent weight changes, no fever, no sleep disturbances Respiratory: No cough, no shortness of air, no recurring pulmonary infections Cardiovascular/peripheral vascular: No chest pain, no palpitations, no edema, no shortness of breath Gastrointestinal: No new onset incontinence, normal bowel movements reported Genitourinary: No new onset incontinence Musculoskeletal: Neck pain, low back pain, hip pain Psychiatric: [Normal mood/affect] Neurological: [Denies weakness in extremities], [denies balance issues] Objective:: Physical Exam: General: Alert and oriented x3, no acute distress, pleasant and cooperative Lungs: Respirations even and unlabored, symmetrical chest expansion Eyes: PERRL Musculoskeletal: Flexion and extension of cervical and lumbar [spine] somewhat guarded secondary to pain, [antalgic gait noted]; tender to palpation around the left greater trochanteric bursa Neurological: Speech clear, no gross sensory deficit Assessment:: Degenerative disc disease of the cervical and lumbar spine with cervical and lumbar radiculopathy symptoms, sacroiliitis, generalized joint pain, greater trochanteric bursitis Plan:: Since her CRP is elevated at 16.1, we will go ahead and refer the patient to rheumatology. I did try to order BATSHEVA and anti-CCP last time, however this was not done. We will reorder these labs again. I will increase the patient's Lyrica to Lyrica 100 mg twice a day. I will refill the patient's meloxicam 15 mg daily. I will also start the patient on a compounding cream and prednisone 20 mg twice a day for 5 days. Will follow this patient in 1 month Patient has been instructed to contact the clinic with any concerns before the next appointment. Dr. Tian has reviewed this note and agrees with this plan of care. This note was dictated using voice recognition software and make contain errors or omissions. [facility] History Medical History: Reports:: Asthma, Heart Murmur, Hyperlipidemia, Palpitations Denies:: Cancer, Diabetes Mellitus Type 1, Diabetes Mellitus Type 2, MRSA, Seizures *Have you ever received a pneumonia vaccine?: No *Have you received a flu vaccine this season?: Yes Other Medical History: Reports: Arthritis, Other (thyroid nodules-workup neg. ) Other Surgeries: Yes: No Previous Surgery, Other Amputation: No Fractures: No - *Social History Smoking Status: Never smoker Alcohol Intake: never Alcohol Intake Frequency:: holidays/special occasions only *Occupational Status:: other Housing: house Household Members: other *Travel in the last 8 weeks: None Family Hx:: Non-contributory, Cancer (Father-Renal cell carcinoma)
== END ==
PROVIDERS: Visit Provider Student in an Organized Health Care Education/Training Program
DX: M51.16 Intervertebral disc disorders with radiculopathy, lumbar region (principal); M50.10 Cervical disc disorder with radiculopathy, unspecified cervical region; M47.892 Other spondylosis, cervical region; M25.50 Pain in unspecified joint
CPT/HCPCS: 99212; G0463

== ENCOUNTER 2021-10-06 14:37 | Emergency (ER) | payer OTHER, SELFPAY ==
[2021-10-06 15:27] VITALS: BP 165/99; PULSE 87; RESP 16; TEMP 37; O2SAT 95; BMI 28.1
--- NOTE | 2021-10-06 15:32 | HMH.EDUTC ---
[facility] [place] Clinical Impression: UTI (urinary tract infection) Qualifiers: Urinary tract infection type: site unspecified Hematuria presence: with hematuria Qualified Code(s): N39.0 - Urinary tract infection, site not specified Disposition: Home, Self-Care Condition on Discharge: Good Instructions: Urinary Tract Infection, Urine Culture, DI for Urinary Tract Infection (UTI), Phenazopyridine Additional Instructions: Drink plenty of fluids. Take tylenol or ibuprofen for pain or fever. Take the medications as directed. Follow up with your regular doctor. GO TO THE ER FOR ANY WORSENING SYMPTOMS The pyridium will make your urine turn orange, this is an expected side effect. It will stain your clothes if it comes into contact with them. We will culture the uri Prescriptions: Ondansetron [Zofran 4mg ODT] 4 mg PO Q8HP PRN #12 tab PRN Reason: Nausea Transmission Status: [facility] Nitrofurantoin Monohyd/M-Cryst [Macrobid 100 mg Capsule] 100 mg PO BID 5 Days #10 cap Transmission [facility]: [facility] Phenazopyridine HCl [Pyridium 200mg Tablet] 200 pow PO TID #6 tab Transmission Status: [facility] Referrals: Pauline Phillips APRN [Primary Care Provider] - Time of Disposition: 15:50 Medical Decision Making - Medical Records Medical records reviewed: No: I reviewed the patient's medical records. - Robert Inquiry Pt receiving controlled substance: No Vital Signs: 10/06/21 15:27 10/06/21 15:59 Temperature 98.6 F 98.6 F Temperature Source Oral Pulse Rate 87 Pulse Rate [Left] 87 Respiratory Rate 16 16 Blood Pressure 165/99 H Blood Pressure [Right Arm] 165/99 H Blood Pressure Mean [Right Arm] 121 02 Sat by Pulse Oximetry 95 - Lab Data Lab Results 10/06/21 15:38: Urine Color [place], Urine Appearance Cloudy, Urine pH 6.0, Ur Specific [place] 1.025, Urine Protein 2+, Urine Glucose (UA) Trace, Urine Ketones Small, Urine Blood 1+, Urine Nitrate Positive A, Urine Bilirubin 1+ A, Urine Urobilinogen 2, Ur Leukocyte Esterase 1+ A Orders (Tests/Meds): ORDERS Category Date Time Status Urine Culture Stat Micro 10/06/21 15:19 Results [facility] [place] - General Stated complaint: possible uti Time Seen by Provider: 10/06/21 15:32 Mode of Arrival: Ambulatory Source of Information: Patient Limitations: No Limitations Description of Symptoms (Recalled from Triage Doc. by RN): patient comes in or urinary tract pain. symptoms began last night. HEENT Symptoms (Recalled from RN notes): No Resp Symptoms (Recalled from RN notes): No Skin Symptoms (Recalled from RN notes): No MS Symptoms (Recalled from RN notes): No Functional Status (Recalled from RN notes): n/a - History of Present Illness Provider Complaint: She states that she has had low back pain, dysuria and urinary frequency for the past 2 days. - Related Data Home Medications Medication Instructions Recorded Confirmed norethindrone acetate 1 mg-ethinyl 1 tab PO DAILY 12/22/18 09/24/21 estradiol 20 mcg tablet Escitalopram Oxalate [Lexapro] 10 mg PO DAILY 02/08/21 09/24/21 Tramadol HCl [Tramadol 50mg 50 mg PO Q6HP PRN 02/08/21 09/24/21 Tab] Tizanidine HCl 4 mg PO TID 08/21/21 09/24/21 Pregabalin [Lyrica 75mg Cap] 75 mg PO BID 09/24/21 09/24/21 Previous Rx's Medication Instructions Recorded Benzonatate [Benzonatate 100mg 100 mg PO Q8HP PRN #15 cap 02/08/21 cap] cholestyramine (with sugar) 4 gram 4 g PO BID PRN #60 each 05/29/21 powder for susp in a packet Meloxicam 15 mg PO DAILY #30 tab 09/24/21 predniSONE [Prednisone 20mg 20 mg PO BID #10 tab 09/24/21 Tab] Pregabalin [Lyrica 75mg Cap] 75 mg PO TID #90 cap 09/26/21 Nitrofurantoin Monohyd/M-Cryst 100 mg PO BID 5 Days #10 cap 10/06/21 [Macrobid 100 mg Capsule] Ondansetron [Zofran 4mg ODT] 4 mg PO Q8HP PRN #12 tab 10/06/21 Phenazopyridine HCl [Pyridium
[2021-10-06 15:38] LABS: Apearance,Urine Cloudy (Clear); Color,Urine Orange (Yellow); Specific Gravity, Urine 1.025 (1.005-1.030)
[2021-10-06 15:39] LABS: Bilirubin,Urine 1+ (Negative); Blood, Urine 1+ (Negative); Glucose,Urine (UA) Trace (Negative); Ketones,Urine SMALL (Negative); Protein,Urine 2+ (Negative)
[2021-10-06 15:40] LABS: UTC Leukocyte Esterase,Urine 1+ (Negative); UTC Nitrate,Urine Positive (Negative); Urobilinogen,Urine 2 EU/dl (0.2)
[2021-10-06 15:59] VITALS: BP 165/99; PULSE 87; RESP 16; TEMP 37
== END 2021-10-06 16:00 | disposition home or self-care (01) ==
PROVIDERS: Emergency Provider Nurse Practitioner Family; PCP Nurse Practitioner Family
DX: N39.0 Urinary tract infection, site not specified (principal)
CPT/HCPCS: 81003; 87086; 87088; 87186; 99212; G0463

== ENCOUNTER → 2021-10-25 11:44 | Outpatient (POV) | payer OTHER, SELFPAY ==
[2021-10-25 11:49] VITALS: BP 132/83; PULSE 72; RESP 20; BMI 28.1
--- NOTE | 2021-10-25 13:00 | P.CONS_ITS ---
[facility] Pain Management SOAP Note Subjective:: Patient is a pleasant 41-year-old female who presents today for follow-up. Patient is current being treated for degenerative disc disease of the cervical spine and lumbar spine with cervical and lumbar radiculopathy symptoms, sacroiliitis, generalized joint pains. We have tried L SI and L GTB injections that provided about 50% of relief. She says that she is still having pain around her left hip. She is not interested in redoing the injections at this time. I also ordered rheumatology labs for the patient and referred the pt to [facility]. She has negative RF, anti-ccp, and BATSHEVA. CRP was 16 and ESR was 20. [facility] denied her d/t these labs. She continues to have generalized joint pains worse in her neck and left hip. I started her on meloxicam 15mg but she has stopped this medication since it was not helping. I did increase her pregabalin to pregabalin 75mg TID which is helping her neuropathic pains. She continues to take ibuprofen for pain. Robert [id number], MEQ 0. Review of Systems: General: No recent weight changes, no fever, no sleep disturbances Respiratory: No cough, no shortness of air, no recurring pulmonary infections Cardiovascular/peripheral vascular: No chest pain, no palpitations, no edema, no shortness of breath Gastrointestinal: No new onset incontinence, normal bowel movements reported Genitourinary: No new onset incontinence Musculoskeletal: Neck pain, low back pain, left hip pain Psychiatric: [Normal mood/affect] Neurological: [Denies weakness in extremities], [denies balance issues] Objective:: Physical Exam: General: Alert and oriented x3, no acute distress, pleasant and cooperative Lungs: Respirations even and unlabored, symmetrical chest expansion Eyes: PERRL Musculoskeletal: Flexion and extension of cervical and lumbar [spine] somewhat guarded secondary to pain, [antalgic gait noted]; left SI positive for JULIO, Elliot's, Milford's, Gaenslen's, compression, and distraction. TTP GTB Neurological: Speech clear, no gross sensory deficit Assessment:: Degenerative disc disease of the cervical and lumbar spine with cervical and lumbar radiculopathy symptoms, sacroiliitis, greater trochanteric bursitis, generalized joint pain Plan:: We will continue the patient's Lyrica 75 mg 3 times a day. We will provide the patient with 1 month worth of refill. I will also start the patient on tramadol 50 mg twice a day and duloxetine 60 mg daily. Follow-up with this patient in 1 month. I also provided patient information in regards to serotonin syndrome. We will order an updated left hip x-ray to rule out any osteoarthritis. Patient has been instructed to contact the clinic with any concerns before the next appointment. Dr. Tian has reviewed this note and agrees with this plan of care. This note was dictated using voice recognition software and make contain errors or omissions. [facility] History Medical History: Reports:: Asthma, Heart Murmur, Hyperlipidemia, Palpitations Denies:: Cancer, Diabetes Mellitus Type 1, Diabetes Mellitus Type 2, MRSA, Seizures *Have you ever received a pneumonia vaccine?: No *Have you received a flu vaccine this season?: Yes Other Medical History: Reports: Arthritis, Other (thyroid nodules-workup neg. ) Other Surgeries: Yes: No Previous Surgery, Other Amputation: No Fractures: No - *Social History Smoking Status: Never smoker Alcohol Intake: never Alcohol Intake Frequency:: holidays/special occasions only *Occupational Status:: other Housing: house Household Members: other *Travel in the last 8 weeks: None Family Hx:: Non-contributory, Cancer (Father-Renal cell carcino
== END ==
PROVIDERS: PCP Nurse Practitioner Family; Visit Provider Student in an Organized Health Care Education/Training Program
DX: M51.16 Intervertebral disc disorders with radiculopathy, lumbar region (principal); M46.1 Sacroiliitis, not elsewhere classified
CPT/HCPCS: 99212; G0463

== ENCOUNTER 2021-11-11 14:00 | Emergency (ER) | payer OTHER, SELFPAY ==
[2021-11-11 15:20] VITALS: BP 122/80; PULSE 110; RESP 20; TEMP 36.9; O2SAT 95; BMI 28.1
--- NOTE | 2021-11-11 15:29 | EXP.UTC ---
Discharge Plan Disposition Patient Disposition: Home, Self-Care Condition: Good Prescriptions Prescriptions: New nitrofurantoin monohyd/m-cryst [Macrobid] 100 mg capsule 100 mg PO BID 7 Days Qty: 14 0RF Rx Instructions: must administer with a meal/food phenazopyridine [Pyridium] 200 mg tablet 200 mg PO Q8H 2 Days Qty: 6 0RF No Action norethindrone ac-eth estradiol [Loestrin 03/29 ()] 1-20 mg-mcg tablet 1 tab PO DAILY cholestyramine (with sugar) [Questran] 4 gram powder in packet 4 g PO BID PRN (Reason: diarrhea) Qty: 60 2RF Rx Instructions: administer w/meal; avoid other meds within 1hr before or 4-6hr after dose tizanidine 4 MG tablet 4 mg PO TID meloxicam 15 MG tablet 15 mg PO DAILY Qty: 30 2RF duloxetine 60 MG capsule,delayed release(DR/EC) 60 mg PO DAILY Qty: 30 0RF tramadol 50 MG tablet 50 mg PO BID Qty: 30 1RF pregabalin 75 MG capsule 75 mg PO TID Qty: 90 0RF tramadol 50 MG tablet 50 mg PO Q6HP PRN (Reason: Moderate Pain) escitalopram oxalate 10 MG tablet 10 mg PO DAILY Referrals Follow up/Referrals: Pauline Phillips APRN [Primary Care Provider] - See instructions Activity Restrictions/Add. Instructions Additional Instructions/Restrictions: Make sure to drink plenty of fluids Take medication as prescribed Follow up with your Family Doctor to discuss your urine Culuture and further treatment Return if needed Straight to ER if any life threatening symptoms Clinical Impressions Clinical Impression: UTI (urinary tract infection) Instructions Patient Instructions: DI for Urinary Tract Infection (UTI), Nitrofurantoin Discharge ED Provider: Cathryn Mckeon [facility] [place] General Stated complaint: possible UTI Time Seen by Provider: 11/11/21 15:29 History of Present Illness Provider Complaint: Patient states that she feels like she has been having UTI symptoms States that she get them sometimes States that her last was in September States that she has been having the feeling of urgency and frequency States that she took an azo but hasnt helped much so she came in to get checked out Related Data Home Medications Medication Instructions Recorded Confirmed norethindrone acetate 1 mg-ethinyl 1 tab PO DAILY control 10/15/19 08/18/22 estradiol 20 mcg tablet (Loestrin) escitalopram oxalate 10 mg tablet 10 mg PO DAILY Anxiety 02/08/21 10/25/21 tramadol 50 mg tablet 50 mg PO Q6HP PRN Moderate Pain 02/08/21 10/25/21 tizanidine 4 mg tablet 4 mg PO TID . 08/21/21 10/25/21 Previous Rx's Medication Instructions Recorded cholestyramine (with sugar) 4 gram 4 g PO BID PRN diarrhea #60 ea 05/29/21 powder for susp in a packet (Questran) meloxicam 15 mg tablet 15 mg PO DAILY . #30 tabs 09/24/21 duloxetine 60 mg capsule,delayed 60 mg PO DAILY #30 caps 10/25/21 release pregabalin 75 mg capsule 75 mg PO TID nerve pain #90 caps 10/25/21 tramadol 50 mg tablet 50 mg PO BID #30 tabs 10/25/21 nitrofurantoin 100 mg PO BID 7 days #14 caps 11/11/21 monohydrate/macrocrystals 100 mg capsule (Macrobid) phenazopyridine 200 mg tablet 200 mg PO Q8H pain 2 days #6 tabs 11/11/21 (Pyridium) Allergies Allergy/AdvReac Type Severity Reaction Status Date / Time cephalexin [From Keflex] Allergy Intermediate Verified 10/06/21 15:29 [facility] Medical History (Updated 11/11/21 @ 15:44 by Cathryn Mckeon APRN) Anxiety Asthma Social History (Updated 11/11/21 @ 15:36 by Farnaz De Luna RN) Smoking Status: Never smoker second hand exposure: No alcohol intake: never current occupational status: other Travel in the last 8 weeks: None household members: other housing: house current occupational exposures/hazards: No caffeine: Yes ROS Obtained: Yes All systems reviewed & no additional complaints except as documented and Yes Systems reviewed as appropriate & no additional complaints except as documented Consti
[2021-11-11 15:47] VITALS: BP 122/80; PULSE 110; RESP 20; TEMP 36.9; O2SAT 95
[2021-11-11 17:15] LABS: Apearance,Urine Cloudy (Clear); Color,Urine Yellow (Yellow); Glucose,Urine (UA) 250 (Negative); Ketones,Urine TRACE (Negative); Protein,Urine 3+ (Negative)
[2021-11-11 17:16] LABS: Bilirubin,Urine 2+ (Negative); Blood, Urine Trace (Negative); UTC Leukocyte Esterase,Urine 3+ (Negative); UTC Nitrate,Urine Positive (Negative); Urobilinogen,Urine >=8 EU/dl (0.2)
== END 2021-11-11 15:51 | disposition home or self-care (01) ==
PROVIDERS: Emergency Provider Nurse Practitioner; PCP Nurse Practitioner Family
DX: N39.0 Urinary tract infection, site not specified (principal); B96.20 Unspecified Escherichia coli [E. coli] as the cause of diseases classified elsewhere
CPT/HCPCS: 81003; 87086; 87088; 87186; 99212; G0463

== ENCOUNTER → 2021-11-20 11:52 | Outpatient (POV) | payer OTHER, SELFPAY ==
[2021-11-20 12:02] VITALS: BP 132/76; PULSE 94; RESP 20; O2SAT 94; BMI 28.1
--- NOTE | 2021-11-20 13:11 | EXP.PAIN.SOA ---
[facility] Pain Management SOAP Note Subjective:: Patient is a pleasant 41-year-old female who presents today for follow-up. We are currently treating the patient for degenerative disc disease of cervical and lumbar spine with cervical and lumbar radiculopathy symptoms, sacroiliitis, greater trochanteric bursitis, generalized joint pain. Today the patient rates her pain an 8 out of 10 she states the pain is primarily on her left mid abdomen around her iliac crest as well as generalized joint pain. Patient denies any new trauma or injury to the site. Patient denies any change to the location or type of pain she experiences. We have done injective therapy in the past that provided about 50% of relief. Patient is also been ordered rheumatology labs and refer to [facility]. She has a negative RF, anti-CCP, and BATSHEVA. Her CRP was 16 and ESR was 20 at that time rheumatology did not her regarding these labs. Patient has been on Lyrica 75 mg 3 times daily which she states does provide some improvement of her symptoms. She also takes ibuprofen for pain as needed. Patient has recently been added on tramadol 50 mg twice a day and duloxetine 60 mg daily. Patient denies any side effects from these medications. She states that she has not really noticed a difference as of this point. Previously the patient was ordered a left hip x-ray however she forgot to go for this appointment. Patient states that rheumatology has called her this week and stated that they do have an appointment for her on . Review of systems: General: No recent weight changes, no fever, no sleep disturbances Respiratory: No cough, no shortness of air, no recurring pulmonary infections Cardiovascular/peripheral vascular: No chest pain, no palpitations, no edema, no shortness of breath Gastrointestinal: No new onset incontinence, normal bowel movements reported Genitourinary: No new onset incontinence Musculoskeletal: Left iliac crest pain, generalized joint pain Psychiatric: Normal mood/affect Neurological: Denies weakness in extremities, denies balance issues Objective:: Physical exam: General: Alert and oriented x3, no acute distress, pleasant and cooperative Lungs: Respirations even and unlabored, symmetrical chest expansion eyes: PERRL Musculoskeletal: Flexion and extension of cervical and lumbar spine somewhat guarded secondary to pain, antalgic gait noted Neurological: Speech clear, no gross sensory deficit Assessment:: Degenerative disc disease of cervical and lumbar spine with cervical and lumbar radiculopathy symptoms, sacroiliitis, greater trochanteric bursitis, generalized joint pain Plan:: Patient continues to have significant generalized joint pain as well as pain along her left iliac crest. Patient had previously forgot to go to her left hip x-ray however at this time the patient has decided to wait until after seeing rheumatology to proceed forward. I will reorder the patient's tramadol 50 mg twice a day, Lyrica 75 mg 3 times daily and duloxetine 60 mg daily. I will provide a 1 month supply of this medication. Patient will follow-up in 1 month for reevaluation of symptoms. Patient has been instructed to contact the clinic with any concerns before the next appointment. Dr. Tian has reviewed this note and agrees with this plan of care. This note was dictated using voice recognition software and may contain errors or omissions. [facility] Medical History (Updated 11/11/21 @ 15:44 by Cathryn Mckeon APRN) Anxiety Asthma Social History (Updated 11/20/21 @ 12:04 by Marie Harrell RN) Smoking Status: Never smoker second hand exposure: No alcohol intake: never substance use type: unknown current occupational status: other Travel in the last 8 weeks: None household members: other housing: house current occupational exposures/hazards: No caffeine: Yes
== END | disposition home or self-care (01) ==
PROVIDERS: PCP Nurse Practitioner Family; Visit Provider Nurse Anesthetist, Certified Registered
DX: M50.10 Cervical disc disorder with radiculopathy, unspecified cervical region (principal); M51.16 Intervertebral disc disorders with radiculopathy, lumbar region; M46.1 Sacroiliitis, not elsewhere classified; M70.60 Trochanteric bursitis, unspecified hip
CPT/HCPCS: 99212; G0463

== ENCOUNTER → 2021-12-20 12:53 | Outpatient (POV) | payer OTHER, SELFPAY ==
[2021-12-20 13:25] VITALS: BP 124/79; PULSE 94; RESP 18; TEMP 36.3; O2SAT 95; BMI 28.1
--- NOTE | 2021-12-20 14:47 | EXP.PAIN.SOA ---
[facility] Pain Management SOAP Note Subjective:: Patient is a pleasant 41-year-old female who presents today for follow-up. Patient described being treated for degenerative disc disease of cervical and lumbar spine with cervical and lumbar radiculopathy symptoms, sacroiliitis, greater trochanteric bursitis, generalized joint pains. We have been managing this patient with tramadol 50 mg twice a day, Lyrica 75 mg 3 times a day and duloxetine 60 mg daily. Denies any side effects from these medications. She is needing refills on these medications. In the past, we have ordered rheumatology labs for this patient. She had a negative RF, anti-CCP, BATSHEVA. Her CRP was 16 and ESR was 20. She is currently seeing rheumatology who is doing several test. She states that she is negative for lupus and Vini's. She is still being followed by rheumatology. They want her to continue the medications that she is on. She rates her pain today as 6 out of 10. Robert [birth year]17[birth year]2006 to 10/09/1991 390 morphine equivalent of 10. Patient is also been complaining of worsening bilateral knee pain, right worse than the left. She denies any recent falls or traumas. She feels like she has been feeling grinding and crunching noises on her right knee. She has done home exercises that provided minimal relief. This is worse with any prolonged standing and walking. She has never had any injections in her knees before. Review of Systems: General: No recent weight changes, no fever, no sleep disturbances Respiratory: No cough, no shortness of air, no recurring pulmonary infections Cardiovascular/peripheral vascular: No chest pain, no palpitations, no edema, no shortness of breath Gastrointestinal: No new onset incontinence, normal bowel movements reported Genitourinary: No new onset incontinence Musculoskeletal: Neck pain, low back pain, hip pain, right knee pain Psychiatric: [Normal mood/affect] Neurological: [Denies weakness in extremities], [denies balance issues] Objective:: Physical Exam: General: Alert and oriented x3, no acute distress, pleasant and cooperative Lungs: Respirations even and unlabored, symmetrical chest expansion Eyes: PERRL Musculoskeletal: Flexion and extension of cervical and lumbar [spine] somewhat guarded secondary to pain, [antalgic gait noted]; limited range of motion of the right knee secondary to pain Neurological: Speech clear, no gross sensory deficit Assessment:: Degenerative disc disease of the cervical and lumbar spine with cervical and lumbar radiculopathy symptoms, hip pain, right knee pain Plan:: We will schedule the patient for a right knee intra-articular injection. We will continue the patient's Lyrica 75 mg 3 times a day, tramadol 50 mg twice a day, and duloxetine 60 mg daily. We will provide the patient with 3 months worth of refill. We will follow-up with the patient in 3 months. Patient has been instructed to contact the clinic with any concerns before the next appointment. Dr. Tian has reviewed this note and agrees with this plan of care. This note was dictated using voice recognition software and make contain errors or omissions.. [facility] Medical History (Updated 11/11/21 @ 15:44 by Cathryn Mckeon APRN) Anxiety Asthma Social History (Updated 11/20/21 @ 13:19 by Maxwell Bang CRNA) Smoking Status: Never smoker second hand exposure: No alcohol intake: never substance use type: unknown current occupational status: employed Travel in the last 8 weeks: None household members: other housing: house current occupational exposures/hazards: No caffeine: Yes
== END | disposition home or self-care (01) ==
PROVIDERS: Visit Provider Student in an Organized Health Care Education/Training Program
DX: M51.16 Intervertebral disc disorders with radiculopathy, lumbar region (principal); M50.10 Cervical disc disorder with radiculopathy, unspecified cervical region; Z79.899 Other long term (current) drug therapy
CPT/HCPCS: 99212; G0463

== ENCOUNTER 2022-01-02 12:12 | Emergency (ER) | payer OTHER, SELFPAY ==
--- NOTE | 2022-01-02 12:19 | EXP.UTC ---
Discharge Plan Disposition Patient Disposition: Home, Self-Care Condition: Good Prescriptions Prescriptions: No Action norethindrone ac-eth estradiol [Loestrin 03/29 ()] 1-20 mg-mcg tablet 1 tab PO DAILY cholestyramine (with sugar) [Questran] 4 gram powder in packet 4 g PO BID PRN (Reason: diarrhea) Qty: 60 2RF Rx Instructions: administer w/meal; avoid other meds within 1hr before or 4-6hr after dose tizanidine 4 MG tablet 4 mg PO TID meloxicam 15 MG tablet 15 mg PO DAILY Qty: 30 2RF escitalopram oxalate 10 MG tablet 10 mg PO DAILY duloxetine 60 MG capsule,delayed release(DR/EC) 60 mg PO DAILY Qty: 60 2RF tramadol 50 MG tablet 50 mg PO BID Qty: 60 2RF pregabalin 75 MG capsule 75 mg PO TID Qty: 90 2RF Referrals Follow up/Referrals: Pauline Phillips APRN [Primary Care Provider] - See instructions Activity Restrictions/Add. Instructions Additional Instructions/Restrictions: Drink plenty of fluids. Take tylenol or ibuprofen for pain or fever. Follow up with your regular doctor. GO TO THE ER FOR ANY WORSENING SYMPTOMS Quarantine until you know the results of your covid-19 test. Notify your school or workplace of your results and follow their instructions regarding return to work/school. Clinical Impressions Clinical Impression: Exposure to 2019 novel coronavirus, Viral syndrome Stand Alone Forms Stand Alone Forms: Work/School Release Instructions Patient Instructions: Coronavirus Disease 2019, Preventing the Spread of Coronavirus Discharge Instructions Discharge ED Provider: Kb Pacheco [facility] [place] General Stated complaint: exposed to covid Time Seen by Provider: 01/02/22 12:19 History of Present Illness Provider Complaint: She states that she has been exposed to covid-19 in her home. She does have a runny nose, but she denies any other symptoms. Related Data Home Medications Medication Instructions Recorded Confirmed norethindrone acetate 1 mg-ethinyl 1 tab PO DAILY control 12/22/18 12/20/21 estradiol 20 mcg tablet (Loestrin) escitalopram oxalate 10 mg tablet 10 mg PO DAILY Anxiety 02/08/21 12/20/21 tizanidine 4 mg tablet 4 mg PO TID . 08/21/21 12/20/21 Previous Rx's Medication Instructions Recorded cholestyramine (with sugar) 4 gram 4 g PO BID PRN diarrhea #60 ea 05/29/21 powder for susp in a packet (Questran) meloxicam 15 mg tablet 15 mg PO DAILY . #30 tabs 09/24/21 duloxetine 60 mg capsule,delayed 60 mg PO DAILY Pain #60 caps 11/23/21 release pregabalin 75 mg capsule 75 mg PO TID nerve pain #90 caps 12/20/21 tramadol 50 mg tablet 50 mg PO BID Pain #60 tabs 12/20/21 Allergies Allergy/AdvReac Type Severity Reaction Status Date / Time cephalexin [From Keflex] Allergy Intermediate Verified 10/06/21 15:29 [facility] Medical History Anxiety Asthma Social History Smoking Status: Never smoker second hand exposure: No alcohol intake: never substance use type: unknown current occupational status: employed Travel in the last 8 weeks: None household members: other housing: house current occupational exposures/hazards: No caffeine: Yes ROS Obtained: Yes All systems reviewed & no additional complaints except as documented Constitutional Constitutional: Denies chills and Denies fever(s) Eyes Eyes: Denies eye discharge ENT Ears, Nose, Mouth, and Throat: Denies dizziness, Denies otalgia and Denies sore throat Cardiovascular Cardiovascular: Denies chest pain Respiratory Respiratory: Denies shortness of breath, Denies chest congestion, Denies cough, Denies stridor and Denies wheezing Gastrointestinal Gastrointestingal: Denies nausea or vomiting Musculoskeletal Musculoskeletal: Reports system reviewed and no additional complaints, except as documented and Denies arthralgias Integument
[2022-01-02 12:25] VITALS: BP 111/62; PULSE 85; RESP 18; TEMP 36.8; O2SAT 96; BMI 28.1
[2022-01-02 13:09] VITALS: BP 115/74; PULSE 85; RESP 20; TEMP 36.8; O2SAT 98
== END 2022-01-02 13:09 | disposition home or self-care (01) ==
PROVIDERS: Emergency Provider Nurse Practitioner Family; PCP Nurse Practitioner Family
DX: Z20.822 Contact with and (suspected) exposure to COVID-19 (principal); B34.9 Viral infection, unspecified; R09.89 Other specified symptoms and signs involving the circulatory and respiratory systems
CPT/HCPCS: 99212; C9803; G0463; U0003; U0005

== ENCOUNTER 2022-01-08 13:25 | Day surgery (SDC) | payer OTHER, SELFPAY ==
[2022-01-08 13:37] VITALS: BP 119/80; PULSE 99; RESP 18; TEMP 36.7; O2SAT 98; BMI 28.1
--- NOTE | 2022-01-08 13:44 | P.PCN_ITS ---
Procedure Date: 01/08/22 Time: 13:44 Anesthesiologist:: Maxwell Bang CRNA Complications:: None Pre-procedure Diagnosis:: Degenerative disc disease of cervical and lumbar spine with cervical and lumbar radiculopathy symptoms, sacroiliitis, greater trochanteric bursitis, generalized joint pains, bilateral knee osteoarthritis Post-procedure Diagnosis:: Same Indications for Procedure:: Patient is a pleasant 41-year-old female who presents today for bilateral intra- articular knee injections. We are currently treating the patient for degenerative disc disease of cervical and lumbar spine with cervical and lumbar radiculopathy symptoms, sacroiliitis, greater trochanteric bursitis, generalized joint pains, bilateral knee osteoarthritis. Today the patient rates her pain a 6 out of 10. She states the pain is all over in her joints, low back and bilateral knees. Patient denies any new trauma or injury. Patient denies any change of location or type of pain she experiences. We have done multiple injective therapies in the past that have provided significant improvement of her symptoms. Patient is being seen by rheumatology for elevated labs with a CRP of 16 and ESR of 20. She was negative for lupus and Vini's. We will proceed forward with her bilateral knee injections. General: Alert and oriented x3, no acute distress, pleasant and cooperative Lungs: Respiration even unlabored, symmetrical chest expansion Eyes: PERRL Musculoskeletal: Flexion and extension of cervical, lumbar spine somewhat guarded secondary to pain, antalgic gait noted Neurological: Speech clear, no gross sensory deficit Procedure Details:: Informed consent was obtained and the risk and benefits of the procedure were explained to the patient. The patient was taken to the procedure room and put in a sitting position on the exam table. Noninvasive monitoring including a noninvasive blood pressure cuff and pulse oximeter were put on the patient. The area over the patient's bilateral knees were prepped with ChloraPrep as a cleansing solution. Anatomical landmarks were identified. Using sterile technique a 25-gauge 1/2 inch needle was inserted into the lateral approach of the right knee. After negative aspiration 5 mL of 0.25% Marcaine and 40 mg Depo-Medrol were injected incrementally into the joint space. The needle was removed and a sterile bandage applied. We then moved to the left knee, Locating the anatomical landmarks. using sterile technique a 25-gauge 1/2 inch needle was inserted into the lateral aspect of the left knee joint space. After negative aspiration 5 mL of 0.25% Marcaine was injected along with 1 mL of Depo-Medrol 40 mg. Needle was withdrawn and a sterile bandage applied to both knees. Patient tolerated the procedure well with no complications. Plan and Disposition:: We will see the patient back in 2 weeks. Patient will return to clinic in 2 weeks for reevaluation of symptoms and follow-up. Patient has been counseled to contact the office with any questions or concerns before the next appointment date. Dr. Tian is read this note and agrees with this plan of care. This note was dictated using voice recognition software and may contain errors or omissions.
[2022-01-08 13:53] VITALS: BP 122/76; PULSE 85; RESP 20; O2SAT 98
== END 2022-01-08 13:54 | disposition home or self-care (01) ==
PROVIDERS: PCP Nurse Practitioner Family; Visit Provider Nurse Anesthetist, Certified Registered
DX: M51.16 Intervertebral disc disorders with radiculopathy, lumbar region (principal); M50.10 Cervical disc disorder with radiculopathy, unspecified cervical region; M46.1 Sacroiliitis, not elsewhere classified; M70.60 Trochanteric bursitis, unspecified hip; M17.0 Bilateral primary osteoarthritis of knee
CPT/HCPCS: 20610; J1040

== ENCOUNTER 2022-03-17 09:01 | Emergency (ER) | payer OTHER, SELFPAY ==
[2022-03-17 09:15] VITALS: BP 126/83; PULSE 121; RESP 18; TEMP 36.7; O2SAT 96; BMI 32.4
--- NOTE | 2022-03-17 09:37 | EXP.UTC ---
Discharge Plan Disposition Patient Disposition: Home, Self-Care Condition: Good Prescriptions Prescriptions: New azithromycin [Zithromax Z-Abdirashid] 250 mg tablet See Rx Instructions .ROUTE .COMPLEX 5 Days Qty: 6 0RF Rx Instructions: For 250 mg dose pack: take 500 mg today (day 1), then 250 mg for 4 days (days 2-5) No Action norethindrone ac-eth estradiol [Loestrin 03/29 (21)] 1-20 mg-mcg tablet 1 tab PO DAILY cholestyramine (with sugar) [Questran] 4 gram powder in packet 4 g PO BID PRN (Reason: diarrhea) Qty: 60 2RF Rx Instructions: administer w/meal; avoid other meds within 1hr before or 4-6hr after dose tizanidine 4 MG tablet 4 mg PO TID meloxicam 15 MG tablet 15 mg PO DAILY Qty: 30 2RF escitalopram oxalate 10 MG tablet 10 mg PO DAILY tramadol 50 MG tablet 50 mg PO BID Qty: 60 2RF pregabalin 75 MG capsule 75 mg PO TID Qty: 90 2RF Referrals Follow up/Referrals: Pauline Phillips APRN [Primary Care Provider] - See instructions Activity Restrictions/Add. Instructions Additional Instructions/Restrictions: *Monitor Temp, Over the counter Motrin or Tylenol as directed/as needed Tylenol every 4 hours and Motrin every 6 hours (as long as your family doctor has told you that you can take it) for fever or pain. and straight to ER if unable to lower temp less than 101.0 after medication given *Warm salt water gargles may help to soothe the throat *Throat Lozenges? *Warm fluids like tea with honey may help to soothe the throat? *Sleep elevated *Humidifier/Vaporizer Your throat swab was sent for culture. Those results are typically sent to your primary care. Be sure to follow up in 2-3 days with your family doctor/primary care physician if no improvement so they can review those result and treat if necessary. If you don?t have a primary care doctor, I recommend you get one but in the mean time, you will have to return to a walk in clinic Follow up IMMEDIATELY for new or worsening symptoms or no Noticeable improvement over the next 48-72 hours. 911 for difficulty breathing or swallowing Clinical Impressions Clinical Impression: Bacterial tonsillitis Instructions Patient Instructions: Sore Throat, Cough Discharge ED Provider: Cathryn Mckeon [facility] HPI General Stated complaint: Sore throat, bodyaches, cough Time Seen by Provider: 03/17/22 09:37 History of Present Illness Provider Complaint: Patient states that she has been having sore throat body aches and cough States that this morning she looked at her throat and it was all swollen up and had patchy like areas on it so she felt like she may have strep throat so she came in Related Data Home Medications Medication Instructions Recorded Confirmed norethindrone acetate 1 mg-ethinyl 1 tab PO DAILY control 12/22/18 01/08/22 estradiol 20 mcg tablet (Loestrin) escitalopram oxalate 10 mg tablet 10 mg PO DAILY Anxiety 02/08/21 01/08/22 tizanidine 4 mg tablet 4 mg PO TID . 08/21/21 01/08/22 Previous Rx's Medication Instructions Recorded cholestyramine (with sugar) 4 gram 4 g PO BID PRN diarrhea #60 ea 05/29/21 powder for susp in a packet (Questran) meloxicam 15 mg tablet 15 mg PO DAILY . #30 tabs 09/24/21 pregabalin 75 mg capsule 75 mg PO TID nerve pain #90 caps 12/20/21 tramadol 50 mg tablet 50 mg PO BID Pain #60 tabs 12/20/21 duloxetine 60 mg capsule,delayed See Rx Instructions .Route 02/28/22 release .COMPLEX #30 ea azithromycin 250 mg tablet See Rx Instructions PO .COMPLEX 5 03/17/22 (Zithromax Z-Abdirashid) days #6 tabs Allergies Allergy/AdvReac Type Severity Reaction Status Date / Time cephalexin [From Keflex] Allergy Intermediate Verified 01/08/22 13:32 [facility] Disclaimer: The information contained in this section may have been updated after the patient was seen, as this information can be updated by other users. Medical History (Updated 03/17/22 @ 09:43
[2022-03-17 09:47] LABS: UTC Influenza A Antigen Negative (Negative); UTC Strep Screen (Rapid) Negative (Negative)
[2022-03-17 09:48] VITALS: BP 126/83; PULSE 121; RESP 18; TEMP 36.7; O2SAT 96
[2022-03-17 09:48] LABS: UTC Influenza B Antigen Negative (Negative)
== END 2022-03-17 09:52 | disposition home or self-care (01) ==
PROVIDERS: Emergency Provider Nurse Practitioner; PCP Nurse Practitioner Family
DX: J03.80 Acute tonsillitis due to other specified organisms (principal)
CPT/HCPCS: 87804; 87880; 99212; G0463

== ENCOUNTER → 2022-03-21 11:28 | Outpatient (POV) | payer OTHER, SELFPAY ==
[2022-03-21 12:31] VITALS: BP 131/76; PULSE 95; RESP 18; O2SAT 98; BMI 29.7
--- NOTE | 2022-03-21 12:43 | EXP.PAIN.SOA ---
[facility] Pain Management SOAP Note Subjective:: Patient is a pleasant 41-year-old female who presents today for 3-month follow-up and medication refill. We are currently treating the patient for degenerative disc disease of cervical and lumbar spine with cervical and lumbar radiculopathy symptoms, sacroiliitis, greater trochanteric bursitis, generalized joint pain. Today she rates her pain a 7 out of 10. Patient denies any new trauma or injury. Patient denies any change to location or type of pain she experiences. Patient did have bilateral knee intra-articular injections in January and she states she still feels like these are continuing to provide relief. Patient is currently managed with tramadol 50 mg twice a day, Lyrica 75 mg 3 times a day and duloxetine 60 mg daily. Patient does state that she has had increased weight gain lately and feels like it may be related to her medication as well as she states she does not get significant improvement. Patient is asking for refills at today's visit. At our last visit patient had been sent for a rheumatology consult due to elevated labs and she states that she was diagnosed for osteoarthritis and fibromyalgia. Patient was negative for lupus and Vini's. Her Robert is [id number]. Its been reviewed and appropriate. Review of Systems: General: No recent weight changes, no fever, no sleep disturbances Respiratory: No cough, no shortness of air, no recurring pulmonary infections Cardiovascular/peripheral vascular: No chest pain, no palpitations, no edema, no shortness of breath Gastrointestinal: No new onset incontinence, normal bowel movements reported Genitourinary: No new onset incontinence Musculoskeletal: Low back pain Psychiatric: [Normal mood/affect] Neurological: [Denies weakness in extremities], [denies balance issues] Objective:: Physical Exam: General: Alert and oriented x3, no acute distress, pleasant and cooperative Lungs: Respirations even and unlabored, symmetrical chest expansion Eyes: PERRL Musculoskeletal: Flexion and extension of lumbar [spine] somewhat guarded secondary to pain, [antalgic gait noted] Neurological: Speech clear, no gross sensory deficit ORT score updated with minimal risk Assessment:: Degenerative disc disease of cervical and lumbar spine with cervical and lumbar radiculopathy symptoms, sacroiliitis, greater trochanteric bursitis, bilateral knee pain/osteoarthritis, generalized joint pain, fibromyalgia Plan:: Patient continues to experience significant pain throughout her joints and low back. I will refill the patient's tramadol 50 mg twice a day and duloxetine 60 mg daily and provide a 3 month supply of this medication. I will change the patient's pregabalin 75mg to 100 mg 3 times daily and provide a 3 month supply of this medication. I have counseled the patient that if she does not notice significant difference when she does not take her duloxetine that we may discontinue it. I have counseled the patient that weight gain can come from the duloxetine with prolonged use however she may want to refer to her local pharmacy for any additional questions regarding her medications for weight gain. Patient will return to clinic in 3 months for reevaluation of symptoms and follow-up. Patient has been instructed to contact the clinic with any concerns before the next appointment. Dr. Tian has reviewed this note and agrees with this plan of care. This note was dictated using voice recognition software and make contain errors or omissions. [facility] Disclaimer: The information contained in this section may have been updated after the patient was seen, as this information can be updated by other users. Medical History (Updated 03/17/22 @ 09:43 by Cathryn Mckeon APRN) Anxiety Asthma Urinary tract infection Family History (Updated 01/08/22 @ 13:32 by Kelly Givens RN) Other No significant family history Social History (Updated 03/17/22 @ 09:38 by Farnaz
== END | disposition home or self-care (01) ==
PROVIDERS: PCP Nurse Practitioner Family; Visit Provider Nurse Practitioner Family
DX: M51.16 Intervertebral disc disorders with radiculopathy, lumbar region (principal); M50.10 Cervical disc disorder with radiculopathy, unspecified cervical region; M46.1 Sacroiliitis, not elsewhere classified; M70.60 Trochanteric bursitis, unspecified hip; M17.0 Bilateral primary osteoarthritis of knee; M25.50 Pain in unspecified joint; M79.7 Fibromyalgia
CPT/HCPCS: 99212; G0463

== ENCOUNTER → 2022-03-21 12:17 | Outpatient (CLI) | payer OTHER, SELFPAY ==
[2022-03-21 14:16] LABS: Barbiturates Screen,Urine Negative ng/ml (<200)
[2022-03-21 14:17] LABS: Benzodiazepines Screen,Urine Negative ng/ml (<200)
[2022-03-21 14:18] LABS: Amphetamine/Metha Screen,Urine Negative ng/ml (<1000); Cocaine Screen,Urine Negative ng/ml (<300)
[2022-03-21 14:19] LABS: Methadone Screen,Urine Negative ng/ml (<300)
[2022-03-21 14:20] LABS: Cannabinoid Screen,Urine Negative ng/ml (<50)
[2022-03-21 14:21] LABS: Opiate Screen,Urine Positive ng/ml (<300)
[2022-03-21 14:22] LABS: Phencyclidine Screen,Urine Negative ng/ml (<25)
[2022-03-27 14:17] LABS: Codeine Negative (Cutoff=100); Hydrocodone Positive (.); Hydromorphone Positive (.); Morphine Negative (Cutoff=100); Opiates Positive (.)
== END ==
PROVIDERS: PCP Nurse Practitioner Family; Visit Provider Nurse Practitioner Family
DX: Z79.891 Long term (current) use of opiate analgesic (principal)
CPT/HCPCS: 80305; 80361; 80365; G0480

== ENCOUNTER → 2022-07-04 10:56 | Outpatient (POV) | payer OTHER, SELFPAY ==
[2022-07-04 11:10] VITALS: BP 142/91; PULSE 126; RESP 18; O2SAT 96; BMI 31.3
--- NOTE | 2022-07-04 11:21 | EXP.PAIN.SOA ---
[facility] Pain Management SOAP Note Subjective:: Patient is a pleasant 42-year-old female who presents today for medication refill and follow-up. We are currently treating the patient for degenerative disc disease of cervical and lumbar spine with cervical and lumbar radiculopathy symptoms, sacroiliitis, greater trochanteric bursitis, generalized joint pain. Today she rates her pain a 8 out of 10. She states she was recently putting together a trampoline and feels like she may have pulled something in her right knee. She does describe this as a aching, sharp sensation that is worse with increased activity. Patient does not believe she fractured anything and did not have significant bruising. She also states that she does have additional pain in her left heel however it is unrelated to any specific injury. She does state that she feels like it may be plantar fasciitis. Patient is currently managed with tramadol 50 mg twice a day, Lyrica 75 mg 3 times a day and duloxetine 60 mg daily. At her last visit she was experiencing increased weight gain and was planning on going off of the duloxetine as this was a side effects. Today she states that she went off for 1 week however she was having significant pain and went back onto this medication. She does state that it works well. Patient has been diagnosed with osteoarthritis and fibromyalgia. Patient did recently have a inappropriate drug screen that was positive for hydrocodone. Her Robert is [id number]. Its been reviewed and appropriate. Review of Systems: General: No recent weight changes, no fever, no sleep disturbances Respiratory: No cough, no shortness of air, no recurring pulmonary infections Cardiovascular/peripheral vascular: No chest pain, no palpitations, no edema, no shortness of breath Gastrointestinal: No new onset incontinence, normal bowel movements reported Genitourinary: No new onset incontinence Musculoskeletal: Right knee pain, left heel pain Psychiatric: [Normal mood/affect] Neurological: [Denies weakness in extremities], [denies balance issues] Objective:: Physical Exam: General: Alert and oriented x3, no acute distress, pleasant and cooperative Lungs: Respirations even and unlabored, symmetrical chest expansion Eyes: PERRL Musculoskeletal: Flexion and extension of right knee somewhat guarded secondary to pain, [antalgic gait noted] Neurological: Speech clear, no gross sensory deficit Assessment:: Degenerative disc disease of cervical and lumbar spine with cervical and lumbar radiculopathy symptoms, sacroiliitis, greater trochanteric bursitis, generalized joint pain, right knee pain, left heel pain Plan:: Patient is experiencing worsening pain in her right knee with limited range of motion. I have discussed with the patient that she may benefit from a right intra-articular knee injection. Risk and benefits were discussed with the patient and she would like to proceed forward with this plan of care. I have counseled the patient that if she does not get significant relief from this injection we will look at doing imaging for possible further injury such as a meniscus tear. I will order the patient a compounding cream during today's visit. I have counseled the patient due to her inappropriate drug screen we will not continue the tramadol 50 mg twice a day. I will refill the patient's Lyrica 75 mg 3 times a day and duloxetine 60 mg daily and provide a 3-month supply of this medication. Patient will be scheduled for a right knee intra-articular injection. Patient has been instructed to contact the clinic with any concerns before the next appointment. Dr. Tian has reviewed this note and agrees with this plan of care. This note was dictated using voice recognition software and make contain errors or omissions. [facility] Disclaimer: The information contained in this section may have been updated after the patient was seen, as this information can be updated by other users. Medical History (Upd
== END | disposition home or self-care (01) ==
PROVIDERS: PCP Nurse Practitioner Family; Visit Provider Nurse Practitioner Family
DX: M51.16 Intervertebral disc disorders with radiculopathy, lumbar region (principal); M50.10 Cervical disc disorder with radiculopathy, unspecified cervical region; M46.1 Sacroiliitis, not elsewhere classified; M70.60 Trochanteric bursitis, unspecified hip; M25.50 Pain in unspecified joint; M25.561 Pain in right knee; M79.672 Pain in left foot
CPT/HCPCS: 99212; G0463

== ENCOUNTER 2022-07-09 09:59 | Day surgery (SDC) | payer OTHER, SELFPAY ==
[2022-07-09 10:16] VITALS: BP 127/75; PULSE 99; RESP 18; TEMP 37.1; O2SAT 96; BMI 31.3
[2022-07-09 10:21] VITALS: BP 139/79; PULSE 86; RESP 18; O2SAT 96
--- NOTE | 2022-07-09 10:24 | P.PCN_ITS ---
Procedure Date: 07/09/22 Time: 10:20 Anesthesiologist:: Maxwell Bang CRNA Complications:: None Pre-procedure Diagnosis:: Right knee pain. Post-procedure Diagnosis:: Same. Indications for Procedure:: Patient is a pleasant 42-year-old female comes our clinic today for intra- articular right knee injection. Patient had the knee injected a year ago with significant improvement. Pain in the knee joint has returned to some degree. Knee joint appears stable upon examination. Patient complains of dull, aching sensation coming from the knee joint. Patient requesting a repeat right intra- articular knee injection. Procedure Details:: Informed consent was obtained risk and benefits of the procedure were explained to the patient. Patient was taken the procedure room the right knee was prepped using ChloraPrep. A 25-gauge needle was used to inject 10 mL bupivacaine 0.25% and Depo-Medrol 40 mg into the right knee. The patient tolerated the procedure well with no complications. Plan and Disposition:: Patient was discharged without incident.
== END 2022-07-09 10:21 | disposition home or self-care (01) ==
LOC: SC.PAINP 10:00
PROVIDERS: PCP Nurse Practitioner Family; Visit Provider Nurse Anesthetist, Certified Registered
DX: M25.561 Pain in right knee (principal)
CPT/HCPCS: 20610; J1040

== ENCOUNTER → 2022-10-09 15:42 | Outpatient (CLI) | payer OTHER, SELFPAY ==
--- NOTE | 2022-10-09 15:44 | XR_ITS ---
FINAL REPORT CLINICAL HISTORY: Left Foot Pain Left heel pain per patient for 2 to 3 months. No known injury. Weightbearing views. FINDINGS: Left foot Three views were obtained. There is no acute fracture or dislocation. There is a small plantar calcaneal spur. There are mild degenerative changes of the midfoot. No soft tissue abnormality is identified. IMPRESSION: Degenerative changes without acute bony abnormality. Reviewed, Interpreted and Dictated by Joe Thompson III, MD Transcribed by Shari Paulino Authenticated and [facility]
== END ==
PROVIDERS: PCP Nurse Practitioner Family; Visit Provider Nurse Practitioner Family
DX: M79.672 Pain in left foot (principal)
CPT/HCPCS: 73630

== ENCOUNTER → 2023-01-08 15:08 | Outpatient (POV) | payer OTHER, SELFPAY ==
--- NOTE | 2023-01-08 15:12 | EXP.PAIN.SOA ---
[facility] Pain Management SOAP Note Subjective:: Patient is a pleasant 42-year-old female who presents today for follow-up. We are currently treating the patient for degenerative disc disease of cervical and lumbar spine with cervical and lumbar radiculopathy symptoms, sacroiliitis, greater trochanteric bursitis, generalized joint pain. Today she rates her pain a 8 out of 10. Patient denies any new injury or trauma from her last visit. Patient was given a right knee intra-articular injection back in July. She states that this injection did provide significant improvement of at least 50% lasting approximately 3 weeks. She does state today that she is back to her baseline and it is progressively worsened over the last several months. Patient does have a history of osteoarthritis and fibromyalgia. She does state that the pain does interfere with activities of daily living such as cooking or cleaning or even simple ambulation. Patient denies any recent imaging or any previous orthopedic interventions. Patient is currently managed with pregabalin 100 mg 3 times a day from Dr. Amezquita's office and compounding cream from our office. Her Robert has been reviewed and is appropriate. Review of Systems: General: No recent weight changes, no fever, no sleep disturbances Respiratory: No cough, no shortness of air, no recurring pulmonary infections Cardiovascular/peripheral vascular: No chest pain, no palpitations, no edema, no shortness of breath Gastrointestinal: No new onset incontinence, normal bowel movements reported Genitourinary: No new onset incontinence Musculoskeletal: Right knee pain Psychiatric: [Normal mood/affect] Neurological: [Denies weakness in extremities], [denies balance issues] Objective:: Physical Exam: General: Alert and oriented x3, no acute distress, pleasant and cooperative Lungs: Respirations even and unlabored, symmetrical chest expansion Eyes: PERRL Musculoskeletal: Flexion and extension of right knee somewhat guarded secondary to pain Neurological: Speech clear, no gross sensory deficit Assessment:: Degenerative disc disease of cervical and lumbar spine with cervical and lumbar radiculopathy symptoms, sacroiliitis, greater trochanteric bursitis, generalized joint pain Plan:: Patient continues to experience significant pain in her right knee with limited range of motion. I have discussed with the patient that she may benefit from repeat intra-articular knee injection. Risk and benefits were discussed with the patient and she would like to proceed forward with this plan of care. I will also order x-ray imaging of her right knee as well as MRI without contrast to follow. I have counseled the patient in future if she ends up having a meniscus tear or something along those lines that we will plan on sending her for referral to orthopedics. Patient will be scheduled for a right knee intra-articular injection. Patient has been instructed to contact the clinic with any concerns before the next appointment. Dr. Tian has reviewed this note and agrees with this plan of care. This note was dictated using voice recognition software and make contain errors or omissions. [facility] Disclaimer: The information contained in this section may have been updated after the patient was seen, as this information can be updated by other users. Medical History Anxiety Asthma Urinary tract infection Family History Other No significant family history Social History Smoking Status: Never smoker second hand exposure: No alcohol intake: never substance use type: unknown current occupational status: employed Travel in the last 8 weeks: None household members: other housing: house current occupational exposures/hazards: No caffeine: Yes
[2023-01-08 15:18] VITALS: BP 150/81; PULSE 100; RESP 18; O2SAT 98; BMI 31.3
== END ==
PROVIDERS: PCP Nurse Practitioner Family; Visit Provider Nurse Practitioner Family
DX: M50.10 Cervical disc disorder with radiculopathy, unspecified cervical region (principal); M51.16 Intervertebral disc disorders with radiculopathy, lumbar region; M46.1 Sacroiliitis, not elsewhere classified; M70.60 Trochanteric bursitis, unspecified hip; M25.50 Pain in unspecified joint; M25.561 Pain in right knee
CPT/HCPCS: 99212; G0463

== ENCOUNTER 2023-01-21 13:15 | Day surgery (SDC) | payer OTHER, SELFPAY ==
[2023-01-21 13:37] VITALS: BP 125/91; PULSE 73; RESP 16; TEMP 36.8; O2SAT 100; BMI 31.3
[2023-01-21 13:40] VITALS: BP 146/86; PULSE 118; RESP 20; O2SAT 98
[2023-01-21 13:42] VITALS: BP 131/82; BP 146/86; PULSE 120; PULSE 96; RESP 16; RESP 20; O2SAT 100; O2SAT 98
--- NOTE | 2023-01-21 13:43 | P.PCN_ITS ---
Procedure Date: 01/21/23 Time: 13:40 Anesthesiologist:: Maxwell Bang CRNA Complications:: None Pre-procedure Diagnosis:: DJD right knee. Chronic right knee pain. Post-procedure Diagnosis:: Same. Indications for Procedure:: Is a very pleasant 42-year-old female comes our clinic today for right intra- articular knee injection. Patient reports right knee pain she describes as constant, dull, aching. Patient has responded very well to intra-articular knee injections in the past. She rates her pain today 8/10. Procedure Details:: Details of the procedure explained to the patient. The patient taken to procedure room placed in sitting position. The area over the right knee was cleaned using chlorhexidine as a cleansing solution. Using a 25-gauge inch and half needle the right knee was accessed with ease. After negative aspiration 8 cc of solution containing 0.25% Marcaine +1% lidocaine and 40 mg of Depo-Medrol was injected. Patient tolerated procedure without difficulty. No complications. Plan and Disposition:: Patient was discharged without incident.
== END 2023-01-21 13:42 | disposition home or self-care (01) ==
PROVIDERS: PCP Nurse Practitioner Family; Visit Provider Nurse Anesthetist, Certified Registered
DX: M17.11 Unilateral primary osteoarthritis, right knee (principal); M25.561 Pain in right knee; G89.29 Other chronic pain
CPT/HCPCS: 20610; J1040

== ENCOUNTER → 2023-02-04 13:23 | Outpatient (CLI) | payer OTHER, SELFPAY ==
--- NOTE | 2023-02-04 13:34 | XR_ITS ---
FINAL REPORT CLINICAL HISTORY: knee pain COMPARISON: None FINDINGS: RIGHT KNEE: There is no acute fracture or dislocation. The joint spaces are intact. There is no soft tissue abnormality. IMPRESSION: No acute fracture Reviewed, Interpreted and Dictated by Savannah Beck MD Transcribed by Marry Steele Authenticated and [facility]
== END ==
PROVIDERS: PCP Nurse Practitioner Family; Visit Provider Anesthesiology
DX: M25.561 Pain in right knee (principal)
CPT/HCPCS: 73562

== ENCOUNTER → 2023-02-06 10:47 | Outpatient (CLI) | payer OTHER, SELFPAY ==
--- NOTE | 2023-02-06 10:55 | MR_ITS ---
FINAL REPORT CLINICAL HISTORY: RIGHT KNEE PAIN POSTERIORLY. WORSENS WITH BENDING AND WALKING. COMPARISON: None FINDINGS: Multi planar MR imaging was performed of the right knee. The anterior and posterior cruciate ligaments are intact. The quadriceps and patellar tendons are intact. There is a linear focus of abnormal signal in the posterior horn of the medial meniscus which appears to extend to the margin, likely a tear. The lateral meniscus is intact. The medial and lateral collateral ligaments appear intact. The medial and lateral retinacula appear intact. There is mild bone marrow edema in the medial femoral condyle and medial tibial plateau with small osteochondral defects. A minimal joint effusion is present. There is a popliteal cyst measuring 6.7 cm in craniocaudal dimension. There is a lateral distal femoral metaphyseal lesion present, which measures 2.9 cm in largest dimension, likely an enchondroma. IMPRESSION: Linear signal post horn medial meniscus which appears to extend to the margin of the meniscus, likely a tear. Small osteochondral defects with associated bone marrow edema in the medial femoral condyle and medial tibial plateau. Minimal joint effusion and popliteal cyst are present. Lesion in the lateral distal femoral metaphysis as described, likely an enchondroma. Reviewed, Interpreted and Dictated by Ahsan Valdivia MD Transcribed by Marry Steele Authenticated and [facility]
== END ==
PROVIDERS: PCP Nurse Practitioner Family; Visit Provider Nurse Practitioner Family
DX: M25.561 Pain in right knee (principal)
CPT/HCPCS: 73721

== ENCOUNTER 2023-04-03 16:39 | Outpatient (CLI) | payer OTHER, SELFPAY ==
[2023-04-03 17:32] LABS: Basophils # 0.1 K/mm3 (0-0.2); Basophils % 0.8 % (0.1-2.0); Eosinophils # 0.2 K/mm3 (0.0-0.4); Eosinophils % 2.6 % (0.1-12.0); Hematocrit 36.8 % (37.0-47.0); Hemoglobin 12.6 g/dL (12.2-16.2); Lymphocytes # 2.7 K/mm3 (0.7-4.5); Lymphocytes % 43.3 % (10-50); Mean Corpuscular HGB Conc 34.1 g/dL (31.8-35.4); Mean Corpuscular Hemoglobin 30.1 pg (27.0-31.2); Mean Corpuscular Volume 88.3 fl (81-99); Mean Platelet Volume 8.2 fl (7.4-10.4); Monocytes # 0.4 K/mm3 (0.1-1.0); Monocytes % 5.7 % (1.7-9.3); Neutrophils % 47.7 % (37.0-80.0); Platelet Count 358 K/mm3 (142-424); Red Blood Count 4.17 M/mm3 (4.20-5.40); Red Cell Distribution Width 13.5 % (11.5-17.5); White Blood Count 6.2 K/mm3 (4.8-10.8)
[2023-04-03 18:08] LABS: Chloride 107 mmol/L (98-107); Potassium 4.5 mmoL/L (3.5-5.1); Sodium 137 mmol/L (136-145)
[2023-04-03 18:11] LABS: Anion Gap 10.5 mEq/L (5-15); Blood Urea Nitrogen 17 mg/dl (7-17); Calcium 8.9 mg/dl (8.4-10.2); Carbon Dioxide 24 mmol/L (22.0-30.0); Estimated Glomerular Filt Rate 78 ml/min (>60); GFR (African American) 94 ML/MIN (>60); Glucose 94 mg/dl (74-100)
== END 2023-04-03 23:59 ==
LOC: LAB 16:41
PROVIDERS: PCP Nurse Practitioner Family; Visit Provider Orthopaedic Surgery Adult Reconstructive Orthopaedic Surgery
DX: Z01.812 Encounter for preprocedural laboratory examination (principal)
CPT/HCPCS: 36415; 80048; 85025

== ENCOUNTER 2023-08-29 13:22 | Outpatient (CLI) | payer OTHER, SELFPAY ==
--- NOTE | 2023-08-29 13:22 | MM_ITS ---
PROCEDURE INFORMATION: Exam: MG Bilateral Screening 3D Mammography Exam date and time: 08/29/2023 1:12 PM Age: 43 years old Clinical indication: Screening examination TECHNIQUE: Imaging protocol: Bilateral Screening tomosynthesis and 2D mammography including computer-aided detection (CAD) when performed. COMPARISON: No relevant prior studies available. FINDINGS: MAMMOGRAPHY: Breast composition: There are scattered areas of fibroglandular density. Mass: None. Architectural distortion: None. Calcifications: No suspicious calcifications. Asymmetric density: None. Skin thickening: None. Axillary adenopathy: None. IMPRESSION: No mammographic evidence of malignancy. Annual screening is recommended unless otherwise clinically indicated. ASSESSMENT: BI-RADS Category 1: Negative
== END 2023-08-29 23:59 | disposition home or self-care (01) ==
LOC: RAD 13:22
PROVIDERS: PCP Nurse Practitioner Family; Visit Provider Nurse Practitioner Family
DX: Z12.31 Encounter for screening mammogram for malignant neoplasm of breast (principal)
CPT/HCPCS: 77063; 77067

== ENCOUNTER 2023-12-17 13:25 | Emergency (ER) | payer OTHER, SELFPAY ==
[2023-12-17 13:40] VITALS: BP 156/103; PULSE 106; RESP 20; TEMP 37.3; O2SAT 97; BMI 32.1
[2023-12-17 13:45] LABS: POC Glucose,Bedside 95 (70-110)
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
--- NOTE | 2023-12-17 13:54 | XR_ITS ---
FINAL REPORT CLINICAL HISTORY: cough, fatigue COMPARISON: None FINDINGS: Two views of the chest were obtained. The heart size and pulmonary vascularity are within normal limits. The mediastinum is normal. No acute pulmonary abnormality is identified. There is no pneumothorax. The bony thorax is intact. IMPRESSION: No active cardiopulmonary disease. Reviewed, Interpreted and Dictated by Joe Thompson III, MD Transcribed by Marry Steele Authenticated and [facility]
--- NOTE | 2023-12-17 13:56 | CA_ITS ---
FINAL REPORT TECHNIQUE: Color Doppler, duplex Doppler and compression sonography of the left lower extremity deep venous systems was performed. CLINICAL HISTORY: PAIN LEFT CALF AND EDEMA COMPARISON: None FINDINGS: There is no evidence of deep venous thrombosis from the level of the groin to the calf. The veins are patent and compressible. There is however thrombus and lack of compressibility in the greater saphenous vein and in some superficial varicosities in the calf, consistent with superficial thrombus. IMPRESSION: No evidence of deep venous thrombosis left lower extremity. Findings consistent with thrombus in the greater saphenous vein and in superficial varicosities of the calf. Reviewed, Interpreted and Dictated by Joe Thompson III, MD Transcribed by Marry Steele Authenticated and [facility]
[2023-12-17 14:13] LABS: Basophils # 0.1 K/mm3 (0-0.2); Basophils % 0.5 % (0.1-2.0); Eosinophils # 0.3 K/mm3 (0.0-0.4); Eosinophils % 2.8 % (0.1-12.0); Hematocrit 37.8 % (37.0-47.0); Hemoglobin 12.6 g/dL (12.2-16.2); Lymphocytes # 2.7 K/mm3 (0.7-4.5); Lymphocytes % 29.9 % (10-50); Mean Corpuscular HGB Conc 33.2 g/dL (31.8-35.4); Mean Corpuscular Hemoglobin 30.2 pg (27.0-31.2); Mean Corpuscular Volume 90.7 fl (81-99); Mean Platelet Volume 7.4 fl (7.4-10.4); Monocytes # 0.4 K/mm3 (0.1-1.0); Monocytes % 3.9 % (1.7-9.3); Neutrophils # 5.8 K/mm3 (1.8-7.8); Neutrophils % 62.9 % (37.0-80.0); Platelet Count 420 K/mm3 (142-424); Red Blood Count 4.17 M/mm3 (4.20-5.40); Red Cell Distribution Width 13.7 % (11.5-17.5); White Blood Count 9.2 K/mm3 (4.8-10.8)
[2023-12-17 14:36] VITALS: BP 144/79; PULSE 67; PULSE 79; RESP 16; RESP 18; TEMP 36.7; O2SAT 97; O2SAT 99; BMI 32.1
--- NOTE | 2023-12-17 14:36 | ED_ITS ---
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 supervision of previous emergency medicine physician Critical Care <Perfecto Rich MD - Last Filed: 12/17/23 16:02> Critical Care Time Critical Care Time: No
[2023-12-17 14:42] LABS: Erythrocyte Sedimentation Rate 40 mm/hr (0-20)
--- NOTE | 2023-12-17 14:53 | CT_ITS ---
PROCEDURE INFORMATION: Exam: CT Head Without Contrast Exam date and time: 12/17/2023 4:41 PM Age: 43 years old Clinical indication: Other: Acute confusion TECHNIQUE: Imaging protocol: Computed tomography of the head without contrast. Radiation optimization: All CT scans at this facility use at least one of these dose optimization techniques: automated exposure control; mA and/or kV adjustment per patient size (includes targeted exams where dose is matched to clinical indication); or iterative reconstruction. COMPARISON: HEADWO CT head/brain wo con 04/17/2018 4:12 PM FINDINGS: Brain: Normal. No hemorrhage. Unremarkable white matter. No mass effect. Cerebral ventricles: No ventriculomegaly. Paranasal sinuses: Minimal paranasal sinus disease. Mastoid air cells: Visualized mastoid air cells are well aerated. Bones: Unremarkable. No acute fracture. Soft tissues: Unremarkable. IMPRESSION: No acute intracranial abnormality.
[2023-12-17 15:00] VITALS: BP 145/81; PULSE 75; O2SAT 98
[2023-12-17] MEDS: ACETAMINOPHEN 500MG TAB 1000 MG PO (15:19)
--- NOTE | 2023-12-17 15:22 | ECG_ITS ---
APPROVED REPORT Exam: Resting ECG HR:68 bpm ECG Measurements Heart Rate 68 AXES WA 180 P 58 QRSd 106 QRS 58 QT 398 T 42 QTc 416 Conclusion SINUS RHYTHM NORMAL ECG Electronically signed by : YOKASTA FRIAS, 12/17/2023 23:00:17
[2023-12-17 15:33] LABS: Albumin Level 4.4 g/dl (3.5-5.0)
[2023-12-17 15:34] LABS: Chloride 105 mmol/L (98-107); Potassium 3.9 mmoL/L (3.5-5.1); Sodium 137 mmol/L (136-145)
[2023-12-17 15:36] LABS: Alanine Aminotransferase 24 U/L (12-78); Alkaline Phosphatase 75 U/L (38-126); Anion Gap 13.9 mEq/L (5-15); Aspartate Amino Transferase 33 U/L (14-36); Bilirubin,Total 0.6 mg/dl (0.2-1.3); Blood Urea Nitrogen 13 mg/dl (7-17); Carbon Dioxide 22 mmol/L (22.0-30.0); Creatinine Clearance Estimated 116 mL/min (50-200); Estimated Glomerular Filt Rate 68 ml/min (>60); GFR (African American) 82 ML/MIN (>60)
[2023-12-17 15:37] LABS: Albumin/Globulin Ratio 1.2 (1.1-1.8); Globulin 3.6 g/dL (1.3-3.2); Glucose 84 mg/dl (74-100); Magnesium 2.2 mg/dl (1.6-2.3)
[2023-12-17 15:41] LABS: INR 0.86 (0.9-1.1); Prothrombin Time 9.8 seconds (10.1-12.5)
[2023-12-17] MEDS: XARELTO 15MG THP 1 PACKET PAK PO (15:43)
[2023-12-17 16:27] LABS: HCG Qualitative, Serum Negative (Negative)
[2023-12-17 16:50] LABS: Microscopic, Urine URINE MICROSCOPIC (MICROSCOPIC)
[2023-12-17 16:53] LABS: Appearance,Urine CLEAR (Clear); Bilirubin,Urine Negative (Negative); Blood, Urine 1+ (Negative); Color,Urine YELLOW (Yellow); Glucose,Urine (UA) Negative (Negative); Ketones,Urine 1+ (Negative); Leukocyte Esterase,Urine Negative (Negative); Nitrate,Urine Negative (Negative); Protein,Urine Negative (Negative); Specific Gravity, Urine 1.025 (1.005-1.030); Urobilinogen,Urine 0.2 EU/dl (0.2)
[2023-12-17 17:04] LABS: Bacteria,Urine 2+ /lpf; Mucus,Urine 4+ /lpf; WBC,Urine Occasional #/hpf (0-3)
[2023-12-17 17:15] VITALS: BP 145/81; PULSE 75; RESP 16; TEMP 36.7; O2SAT 98
[2023-12-17 17:16] VITALS: BP 136/90
[2023-12-17 18:26] LABS: HIV (1&2) Antibody Rapid NONREACTIVE (NONREACTIVE)
[2023-12-19 10:24] LABS: HCV Ab Non Reactive (Non Reactive)
== END 2023-12-17 17:16 | disposition home or self-care (01) ==
LOC: UTC 14:32 → ER 14:35
PROVIDERS: Nurse Practitioner Family; Physician Assistant; Emergency Provider Student in an Organized Health Care Education/Training Program; PCP Nurse Practitioner Family
DX: I82.812 Embolism and thrombosis of superficial veins of left lower extremity (principal); R22.42 Localized swelling, mass and lump, left lower limb; R42 Dizziness and giddiness; R53.83 Other fatigue; R41.0 Disorientation, unspecified
CPT/HCPCS: 70450; 71046; 80053; 81001; 82962; 83735; 84703; 85025; 85610; 85651; 85730; 86803; 87086; 87389; 93005; 93971; 99284

== ENCOUNTER 2023-12-29 11:39 | Outpatient (CLI) | payer OTHER, SELFPAY ==
[2023-12-29 11:57] LABS: Basophils # 0.1 K/mm3 (0-0.2); Eosinophils # 0.3 K/mm3 (0.0-0.4); Eosinophils % 2.9 % (0.1-12.0); Hemoglobin 12.5 g/dL (12.2-16.2); Lymphocytes % 28.1 % (10-50); Mean Corpuscular HGB Conc 33.9 g/dL (31.8-35.4); Mean Corpuscular Hemoglobin 30.2 pg (27.0-31.2); Mean Corpuscular Volume 89.1 fl (81-99); Mean Platelet Volume 7.1 fl (7.4-10.4); Monocytes # 0.6 K/mm3 (0.1-1.0); Monocytes % 5.5 % (1.7-9.3); Neutrophils # 6.6 K/mm3 (1.8-7.8); Neutrophils % 62.4 % (37.0-80.0); Platelet Count 481 K/mm3 (142-424); Red Blood Count 4.15 M/mm3 (4.20-5.40); Red Cell Distribution Width 13.6 % (11.5-17.5); White Blood Count 10.6 K/mm3 (4.8-10.8)
[2023-12-29 12:08] LABS: Activated Partial Thrombo Time 35.9 seconds (22.8-30.6); INR 1.11 (0.9-1.1); Prothrombin Time 12.3 seconds (10.1-12.5)
[2023-12-29 12:11] LABS: D-Dimer 0.28 ug/mL (0.0-0.5)
[2023-12-29 13:13] LABS: Vitamin B12 > 1000 pg/mL (239-931)
[2023-12-29 18:28] LABS: Ferritin 34.9 ng/ml (6.24-137)
== END 2023-12-29 23:59 | disposition home or self-care (01) ==
LOC: LAB 11:40
PROVIDERS: PCP Nurse Practitioner Family; Visit Provider Nurse Practitioner Family
DX: I82.812 Embolism and thrombosis of superficial veins of left lower extremity (principal); R41.0 Disorientation, unspecified
CPT/HCPCS: 36415; 82607; 82728; 84443; 85025; 85378; 85610; 85730

== ENCOUNTER 2024-01-22 13:11 | Outpatient (CLI) | payer OTHER, SELFPAY | END 2024-01-22 23:59 | disposition home or self-care (01) | LOC: LAB.DROPOF 13:11 | PROVIDERS: PCP Internal Medicine; Visit Provider Internal Medicine | DX: N39.0 Urinary tract infection, site not specified (principal) | CPT/HCPCS: 87086; 87088; 87186 ==

== ENCOUNTER 2024-04-07 15:41 | Outpatient (CLI) | payer OTHER, SELFPAY ==
[2024-04-07 16:01] LABS: Basophils % 0.4 % (0.1-2.0); Eosinophils # 0.1 K/mm3 (0.0-0.4); Eosinophils % 0.9 % (0.1-12.0); Hematocrit 37.4 % (37.0-47.0); Lymphocytes # 1.4 K/mm3 (0.7-4.5); Lymphocytes % 15.2 % (10-50); Mean Corpuscular HGB Conc 32.1 g/dL (31.8-35.4); Mean Corpuscular Volume 87.4 fl (81-99); Mean Platelet Volume 9.5 fl (7.4-10.4); Monocytes # 0.4 K/mm3 (0.1-1.0); Monocytes % 4.1 % (1.7-9.3); Neutrophils # 7.3 K/mm3 (1.8-7.8); Neutrophils % 79.3 % (37.0-80.0); Platelet Count 424 K/mm3 (142-424); Red Blood Count 4.28 M/mm3 (4.20-5.40); Red Cell Distribution Width 13.4 % (11.5-17.5); White Blood Count 9.2 K/mm3 (4.8-10.8)
[2024-04-07 16:21] LABS: Alanine Aminotransferase 19 U/L (12-78); Albumin Level 4.2 g/dl (3.5-5.0); Albumin/Globulin Ratio 1.6 (1.1-1.8); Alkaline Phosphatase 59 U/L (38-126); Anion Gap 13.6 mEq/L (5-15); Aspartate Amino Transferase 23 U/L (14-36); Blood Urea Nitrogen 13 mg/dl (7-17); Calcium 9.6 mg/dl (8.4-10.2); Carbon Dioxide 24 mmol/L (22.0-30.0); Chloride 107 mmol/L (98-107); Estimated Glomerular Filt Rate 78 ml/min (>60); GFR (African American) 94 ML/MIN (>60); Globulin 2.7 g/dL (1.3-3.2); Glucose 123 mg/dl (74-100); Potassium 4.6 mmoL/L (3.5-5.1); Sodium 140 mmol/L (136-145); Total Protein,Serum 6.9 g/dl (6.3-8.2); Uric Acid 5.4 mg/dl (2.5-6.2)
[2024-04-07 16:29] LABS: Erythrocyte Sedimentation Rate 34 mm/hr (0-20)
[2024-04-07 16:45] LABS: Bilirubin,Total 0.1 mg/dl (0.2-1.3)
[2024-04-07 17:10] LABS: Vitamin B12 660 pg/mL (239-931)
[2024-04-07 18:07] LABS: Ferritin 32.8 ng/ml (6.24-137)
[2024-04-08 11:18] LABS: RA Latex Turbid. <10.0 IU/mL (<14.0)
[2024-04-08 16:11] LABS: EBV Ab VCA, IgM <36.0 U/mL (0.0-35.9); EBV Nuclear Antigen Ab, IgG <18.0 U/mL (0.0-17.9)
[2024-04-09 09:10] LABS: Antinuclear Antibodies, IFA Negative (.)
== END 2024-04-07 23:59 | disposition home or self-care (01) ==
LOC: LAB 15:42
PROVIDERS: PCP Nurse Practitioner Family; Visit Provider Nurse Practitioner Family
DX: M25.50 Pain in unspecified joint; M79.7 Fibromyalgia
CPT/HCPCS: 36415; 80053; 82607; 82728; 83735; 84550; 85025; 85651; 86038; 86431; 86664; 86665

== ENCOUNTER 2024-04-12 13:23 | Outpatient (CLI) | payer OTHER, SELFPAY ==
--- NOTE | 2024-04-12 13:26 | XR_ITS ---
FINAL REPORT CLINICAL HISTORY: right hip pain COMPARISON: None FINDINGS: RIGHT HIP Two views of the right hip demonstrate no acute fracture or dislocation. The joint spaces appear normal. The visualized bony structures are well aligned. No soft tissue abnormality is seen. IMPRESSION: No acute bony abnormality. Reviewed, Interpreted and Dictated by Ahsan Valdivia MD Transcribed by Marry Steele Authenticated and [facility]
== END 2024-04-12 23:59 | disposition home or self-care (01) ==
LOC: RAD 13:24
PROVIDERS: PCP Nurse Practitioner Family; Visit Provider Nurse Practitioner Family
DX: M25.551 Pain in right hip (principal)
CPT/HCPCS: 73502

== ENCOUNTER 2024-07-12 11:15 | Outpatient (CLI) | payer OTHER, SELFPAY ==
[2024-07-12 14:08] LABS: Coronavirus 19, PCR Not Detected (NotDetected); Human Rhinovirus Not Detected (NotDetected); Influenza A, PCR Not Detected (NotDetected); Influenza B, PCR Not Detected (NotDetected); Respiratory Syncytial Virus Not Detected (NotDetected)
== END 2024-07-12 23:59 | disposition home or self-care (01) ==
LOC: LAB.DROPOF 07-13 10:53
PROVIDERS: PCP Nurse Practitioner Family; Visit Provider Nurse Practitioner Family
DX: J02.9 Acute pharyngitis, unspecified (principal); R49.0 Dysphonia
CPT/HCPCS: 87070; 87631

== ENCOUNTER 2025-01-14 10:49 | Outpatient (CLI) | payer MEDICAID, SELFPAY ==
[2025-01-14 20:20] LABS: Coronavirus 19, PCR Not Detected (NotDetected); Influenza A, PCR Not Detected (NotDetected); Influenza B, PCR Not Detected (NotDetected)
--- OUTSIDE RECORDS SUMMARY | 2025-01-17 11:11 | XMS_ITS | Clinical Summary ---
Author Organization Healthcare Address [address] [place] [address] Care Team Providers Care Television Repair Teacher Name Role Phone Pauline Phillips BULL Primary Care Provider [phone] Allergies Active Allergy Reactions Criticality Noted Date Comments Cephalexin Rash Low 01/05/2021 Medications escitalopram (Lexapro) 10 MG tablet 12/27/2020 Active ProAir HFA 108 (90 Base) MCG/ACT inhaler 11/03/2020 Act meggan Junel FE 03/29 1-20 MG-MCG tablet 11/03/2020 Active traMADol (Ultram) 50 MG tablet Take 50 mg by mouth. Active DULoxetine (Cymbalta) [address] capsule Take 60 mg by mouth 1 (one) time each day. 10/25/2021 Active meloxicam (Mobic) 15 MG tablet Take 15 mg by mouth 1 (one) time each day. 09/24/2021 Active pregabalin (Lyrica) 75 MG capsule TAKE 1 CAPSULE BY MOUTH THREE TIMES DAILY FOR NERVE PAIN 10/26/2021 Active Active Problems Problem Noted Date Diagnosed Date Anxiety 01/05/2021 Asthma 01/05/2021 Family History Medical History Relation Name Comments Arthritis Father COPD Father Cancer Father Hypercholesterolemia Mother Hypertension Mother Relation Name Status Comments Father Mother Social History Tobacco Use Types Packs/Day Years Used Date Smoking Tobacco: Never Smokeless Tobacco: Never PHQ-2 Answer Date Recorded Patient Health Questionnaire-2 Score 1 12/10/2021 Comments Unknown Sex and Gender Information Value Date Recorded Sex Assigned at Not on file Legal Sex Female 6:47 PM EDT Gender Identity Not on file Sexual Orientation Not on file Last Filed Vital Signs Vital Sign Reading Time Taken Comments Blood Pressure 113/68 01/10/2022 3:06 PM EDT Pulse 92 01/10/2022 3:06 PM EDT Temperature 36.9 C (98.4 F) 12/10/2021 9:42 AM EDT Respiratory Rate 16 01/10/2022 3:06 PM EDT Oxygen Saturation 96% 12/10/2021 9:42 AM EDT Inhaled Oxygen Concentration - - Weight 84.8 kg (187 lb) 01/10/2022 3:06 PM EDT Height 170.2 cm (5' 7 ) 01/10/2022 3:06 PM EDT Body Mass Index 29.29 01/10/2022 3:06 PM EDT Plan of Treatment Health Maintenance Due Date Last Done Comments [facility]-HIV Screening 1978 [facility]-Hepatitis C Screening 1978 [facility]-Infant/Child/Adol SDOH Screenings 1978 [facility]- SDOH Screenings 1996 [facility]-Adult SDOH Screenings 1996 [facility]-DTaP,Tdap,and Td Vaccine s (1 - Tdap) 1997 [facility]-Hepatitis B Vaccines (1 of 3 - 19+ 3-dose series) 1997 [facility]-Pneumococcal Vaccine: Pediatrics (0 to 5 Years) and At-Risk Patients (6 to 49 Years) (1 of 2 - PCV) 1997 [facility]-Pap Smear 06/12/1999 [facility]-Cervical Cancer Screening 2008 [facility]-HPV/Cotest 2008 [facility]-Depression Screening 12/10/2022 022, 01/05/2021 CT Colonography 06/12/2023 Colonoscopy 06/12/2023 FIT-DNA 06/12/2023 FIT 06/12/2023 FOBT 06/12/2023 Sigmoidoscopy 06/12/2023 [facility]-Colorectal Cancer Screening 06/12/2023 [id number] Vaccine ( season) 2024 11/29/2020, 05/26/2020, 04/28/2020 [facility]-Influenza Vaccine (#1) 2024 12/11/2020 [facility]-Zoster Vaccines (1 of 2) 2028 [facility]-Obesity Intervention Completed 022, 12/10/2021, 11/22/2021 HPV Vaccines Aged Out No longer eligi ble based on patient's age to complete this topic [facility]-HIB Vaccines Aged Out No longer e ligible based on patient's age to complete this topic [facility]-Hepatitis A Vaccines Aged Out No longer eligible based on patient's age to complete this topic [facility]-IPV Vaccines Aged Out No longer e ligible based on patient's age to complete this topic [facility]-Rotavirus Vaccines Aged Out No lo nger eligible based on patient's age to complete this topic Insurance [place] [id number] [employer] MEDICA[employer] Care Teams Television Repair Teacher Relationship Specialty Start Date End Date Pauline Phillips APRN [address] [place] [address] PCP - General 01/05/21
--- OUTSIDE RECORDS SUMMARY | 2025-01-17 11:11 | XMS_ITS | Clinical Summary ---
[facility] Organization [facility] Address [address] [place] [address] Care Team Providers Care [employer] Professor Name Role Phone Unavailable Primary Care Provider Unavailabl e Social History Tobacco Use Types Packs/Day Years Used Date Smoking Tobacco: Never Assessed Abuse Screen Answer Date Recorded Unsafe at Home or Work/School Not on file Feels Threatened by Someone? Not on file 12/2022 Does Anyone Keep You from Co ntacting Others or Doint Things Outside the Home? Not on file 12/17/2022 Physical Sign of Abuse Present Not on file 1 Housing Stability Answer Date Recorded Current Living Arrangements Not on file 12/08 Potentially Unsafe Housing Conditions Not on irma e 12/17/2022 Family and Community Support Answer Addison e Recorded Help with Day-to-Day Activities Not on file 12/17/2022 Lonely or Isolated Not on file 12/17/2022 Employment Answer Date Recorded Do you want help finding or keeping work or a carlito b? Not on file 12/17/2022 Disabilities Answer Date Recorded Concentrating, Remembering, or Making Decisions Difficulty Not on file 12/17/2022 Doing Errands Independently Difficulty Not on fi le 12/17/2022 Education Answer Date Recorded Help with school or training? Not on file Preferred Language Not on file 12/17/2022 Comments Unknown Sex and Gender Information Value Date Recorded Sex Assigned at Not on file Legal Sex Female 1:44 PM EDT Gender Identity Not on file Sexual Orientation Not on file Plan of Treatment Health Maintenance Due Date Last Done Comments ANNUAL PHYSICAL 1980 Annual Gynecologic Pelvic an d Breast Exam 1980 HEPATITIS C SCREENING 1978 TDAP/TD VACCINES (1 - Tdap) 1997 MAMMOGRAM 2018 COLOGUARD 06/12/2023 COLON CANCER SCREENING 5 YEA R SIGMOIDOSCOPY 06/12/2023 COLONOSCOPY 06/12/2023 COLORECTAL CANCER SCREENING 06/12/2023 CT COLONOGRAPHY 06/12/2023 FECAL OCCULT BLOOD TEST 06/12/2023 FIT Testing (1 year) 06/12/2023 INFLUENZA VACCINE 10/08/2024 Pneumococcal Vaccine 0-49 Aged Out No longer eligible based on patient's age to complete this topic Insurance [facility]
== END 2025-01-14 23:59 ==
LOC: LAB.DROPOF 01-17 10:49
PROVIDERS: PCP Nurse Practitioner Family; Visit Provider Nurse Practitioner
DX: J06.9 Acute upper respiratory infection, unspecified (principal)
CPT/HCPCS: 87631